=== PATIENT | female | born 1930 | race Caucasian/White ===

== ENCOUNTER 2017-10-07 19:10 | Inpatient (IN) ==
[2017-10-07 19:49] LABS: Basophils % 0.1 %; Eosinophils % 0.6 %; Immature Granulocytes % 0.2 % (0-4); Mean Corpuscular HGB Conc 31.1 g/dL (31.6-35.5); Mean Corpuscular Hemoglobin 25.8 pg (28.0-33.3); Mean Corpuscular Volume 82.8 fL (83.0-100.0); Red Blood Count 1.63 M/mcL (3.82-4.97)
[2017-10-07 19:55] LABS: Eosinophils # 0.1 K/mcL (0.0-0.6); Lymphocytes # 2.5 K/mcL (0.6-4.6); Lymphocytes % 25.8 %; Mean Platelet Volume 9.3 fL (9.4-12.4); Monocytes # 0.7 K/mcL (0.0-1.3); Monocytes % 7.1 %; Neutrophils # 6.4 K/mcL (1.6-8.9); Platelet Count 479 K/mcL (140-400); Red Cell Distribution Width 13.9 % (11.5-14.5); Segmented Neutrophils % 66.2 %
[2017-10-07 20:01] LABS: Hemoglobin 4.2 g/dL (11.5-15.4)
[2017-10-07 20:02] LABS: Hematocrit 13.5 % (35.3-44.9)
[2017-10-07 20:04] LABS: BUN/Creatinine Ratio 15 (6-26); Blood Urea Nitrogen 28 mg/dL (8-23); Calcium 9.4 mg/dL (8.6-10.3); Carbon Dioxide 18 mEq/L (23-29); Chloride 103 mEq/L (98-107); Glucose 145 mg/dL (70-105); Osmolality,Calculated 282 (280-300); Potassium 4.6 mEq/L (3.5-5.1); Sodium 132 mEq/L (136-145); Troponin I < 0.03 ng/mL (< 0.04); eGFR For African Americans 31 (> 60); eGFR For Non-African Americans 25 (> 60)
[2017-10-07 20:15] LABS: Bilirubin,Urine Large (Negative); Blood,Urine Large (Negative); Clarity,Urine Cloudy (Clear); Color,Urine Red (Yellow); Glucose,Urine (UA) Normal (Normal); Ketones,Urine 15 mg/dL (Negative); Leukocyte Esterase,Urine Moderate (Negative); Nitrite,Urine Positive (Negative); Protein,Urine 100 mg/dL (Neg-Trace); Specific Gravity,Urine 1.026 (1.010-1.025); Urobilinogen,Urine Normal (Normal)
[2017-10-07 20:29] LABS: Hypochromasia Present (Not Present); Large Platelets Present (Not Present); Microcytosis Present (Not Present); Platelet Estimate Increased (Normal); Poikilocytosis 1+ (Not Present); Target Cells 1+ (Not Present)
[2017-10-07] MEDS ORDERED: 0.9 % Sodium Chloride 500 ML IV.SOLN IVC ONE (20:29)
[2017-10-07 20:35] LABS: INR 1.1; Prothrombin Time 11.8 Seconds (9.4-12.1)
[2017-10-07 20:38] LABS: Activated Partial Thrombo Time 25.3 Seconds (26.0-36.0)
--- NOTE | 2017-10-07 21:16 | Emergency Department Note ---
Disposition Clinical Impression: Dyspnea on exertion Anemia Qualifiers: Anemia type: unspecified type Qualified Code(s): D64.9 - Anemia, unspecified Disposition: Admitted As Inpatient Condition: Fair Time of Disposition: 21:45 General Adult HPI - General Chief complaint: ED General Medical Stated complaint: Needs blood Time Seen by Provider: 10/07/17 19:12 Source: patient, family Limitations: no limitations Nursing Notes Reviewed: Yes Vital Signs Reviewed: Yes - History of Present Illness HPI Narrative: 86-year-old female with significant past medical history of stroke and previous CABG currently on Plavix presenting to the emergency department with chief complaint of anemia and shortness of breath. Patient has a known renal tumor currently being seen by urology. Today she had preoperative lab work completed in shown to have a hemoglobin of 4.7. She was told to come to the emergency department urgently. Patient states the past couple days she has had dyspnea on exertion but denies chest pain, dizziness or passing out. She denies any rectal bleeding or gingival bleeding. Daughter at bedside confirms this. She states following her bleeding is coming from her urine due to the kidney tumor. Patient states she has mild suprapubic pain but that this is chronic due to the tumor. She denies any other pains or complaints at this time. Pain Scale: 2 - Related Data Home Medications Medication Instructions Recorded Confirmed Atorvastatin [Lipitor] 40 mg PO HS 01/29/16 10/07/17 Metoprolol XL (24 HR) Succ [Toprol 50 mg PO QAM 01/29/16 10/07/17 Xl] Amlodipine Besylate [Amlodipine 10 mg PO QAM 10/07/17 10/07/17 Besylate] Aspirin Enteric Coated [Aspirin EC] 81 mg PO QAM 10/07/17 10/07/17 Cholecalciferol (Vitamin D3) 10,000 unit PO FR 10/07/17 10/07/17 [Vitamin D3] Clopidogrel Bisulfate [Plavix] 75 mg PO QAM 10/07/17 10/07/17 Valsartan [Valsartan] 320 mg PO QAM 10/07/17 10/07/17 Allergies Allergy/AdvReac Type Severity Reaction Status Date / Time nifedipine [From Procardia] Allergy Hives Verified 10/07/17 19:29 IVP dye Allergy Vomiting Uncoded 10/07/17 19:29 All systems ED: reviewed and negative except as stated. Cardiovascular: Reports: dyspnea on exertion Genitourinary: Reports: hematuria Past Medical History - Past Medical History Attestation: Yes The following information was validated with the patient. Medical history: Reports: CVA, hyperlipidemia, hypertension, myocardial infarction, other Surgical history: Reports: cataract, heart valve replacement Psychiatric history: Reports: no psych history - Social History Smoking Status: Never smoker Smokeless Tobacco Status: No Alcohol use: Reports: none Drug use: Reports: none Physical Exam - General Limitations: no limitations General appearance: alert, in no apparent distress - Head Head exam: atraumatic, normocephalic, normal inspection - Eye Eye exam: Present: normal appearance. Absent: scleral icterus, conjunctival injection - ENT ENT exam: normal exam, mucous membranes dry - Neck Neck exam: Present: normal inspection, full ROM. Absent: tenderness, meningismus - Chest Chest inspection: Present: normal inspection, symmetric chest wall rise. Absent : tenderness, rash - Respiratory Respiratory exam: Present: normal lung sounds bilaterally. Absent: respiratory distress, wheezes - Cardiovascular Cardiovascular exam: Present: regular rate, normal rhythm, normal heart sounds - Abdominal Exam Abdominal exam: Present: soft, tenderness. Absent: distention, guarding, rebound, rigidity Abdominal tenderness: Present: suprapubic, mild - Rectal Exam Rectal exam: Present: normal inspection, normal rectal tone, heme (-) stool - Extremities Exam Extremities exam: Present: normal inspection. Absent: tenderness - Neurological Exam Neurological exam: Present: alert, oriented X3 - Psychiatric Psychiatric exam: Present: normal affect, normal mood - Skin Skin exam: Present: warm, intact Course Course Narrative: 86-year-old female presenting to the emergency department with chief complaint of dyspnea on exertion and low hemoglobin. Patient stable upon arrival. She is alert and oriented 3 and room with stable vital signs. Blood obtained CBC, type and screen, BMP along with urinalysis. We will also perform an EKG and chest x-ray. Disposition will be admission. Patient and daughter at bedside agree with this plan. - Reevaluation(s) Reevaluation #1: Patient's hemoglobin 4.2. Place an order for 2 units of packed red blood cells. I spoke with the hospitalist on-call Dr. Moscoso who agrees to accept the patient at this time. Bedside stool occult was completed and was negative for blood. Patient is a alert and oriented 3 and stable vital signs at this time. Vital Signs Temperature 98.0 F 10/07/17 19:29 Pulse Rate 90 10/07/17 19:29 Respiratory Rate 16 10/07/17 19:29 Blood Pressure 126/66 10/07/17 19:29 O2 Sat by Pulse Oximetry 98 10/07/17 19:29 Temperature 98.3 F 10/07/17 21:00 Pulse Rate 81 10/07/17 21:00 Respiratory Rate 16 10/07/17 21:00 Blood Pressure 121/56 10/07/17 21:00 O2 Sat by Pulse Oximetry 100 10/07/17 21:00 Oxygen Delivery Oxygen Delivery Room Air Medical Decision Making - Lab Data Result diagrams: 10/07/17 19:28 10/07/17 19:28 Lab Results 10/07/17 10/07/17 10/07/17 Range/Units 19:28 19:28 19:28 WBC 9.7 (4.3-11.1) K/mcL RBC 1.63 L (3.82-4.97) M/mcL Hgb 4.2 L* (11.5-15.4) g/dL Hct 13.5 L* (35.3-44.9) % MCV 82.8 L (83.0-100.0) fL MCH 25.8 L (28.0-33.3) pg MCHC 31.1 L (31.6-35.5) g/dL RDW 13.9 (11.5-14.5) % Plt Count 479 H (140-400) K/mcL MPV 9.3 L (9.4-12.4) fL Immature Gran % 0.2 (0-4) % Seg Neutrophils % 66.2 % Lymphocytes % 25.8 % Monocytes % 7.1 % Eosinophils % 0.6 % Basophils % 0.1 % Neutrophils # 6.4 (1.6-8.9) K/mcL Lymphocytes # 2.5 (0.6-4.6) K/mcL Monocytes # 0.7 (0.0-1.3) K/mcL Eosinophils # 0.1 (0.0-0.6) K/mcL Basophils # 0.0 (0.0-0.2) K/mcL Platelet Estimate Increased H (Normal) Large Platelets Present A (Not Present) Hypochromasia Present A (Not Present) Poikilocytosis 1+ A (Not Present) Microcytosis Present A (Not Present) Target Cells 1+ A (Not Present) PT (9.4-12.1) Seconds INR APTT (26.0-36.0) Seconds Sodium 132 L (136-145) mEq/L Potassium 4.6 (3.5-5.1) mEq/L Chloride 103 (98-107) mEq/L Carbon Dioxide 18 L (23-29) mEq/L BUN 28 H (8-23) mg/dL Creatinine 1.89 H (0.60-1.20) mg/dL Est GFR ( Amer) 31 L (> 60) Est GFR (Non-Af Amer) 25 L (> 60) BUN/Creatinine Ratio 15 (6-26) Glucose 145 H (70-105) mg/dL Calculated Osmolality 282 (280-300) Calcium 9.4 (8.6-10.3) mg/dL Troponin I < 0.03 (< 0.04) ng/mL Ur Specimen Adequacy Urine Color (Yellow) Urine Clarity (Clear) Urine pH (5.0-8.0) pH Units Ur Specific [place] (1.010-1.025) Urine Protein (Neg-Trace) mg/dL Urine Glucose (UA) (Normal) mg/dL Urine Ketones (Negative) mg/dL Urine Blood (Negative) Urine Nitrite (Negative) Urine Bilirubin (Negative) Urine Urobilinogen (Normal) mg/dL Ur Leukocyte Esterase (Negative) Ur Culture Indicated? (NO) Specimen Rejected Blood Type AB POSITIVE Antibody Screen NEGATIVE Crossmatch See Detail 10/07/17 10/07/17 10/07/17 Range/Units 19:28 20:02 20:04 WBC (4.3-11.1) K/mcL RBC (3.82-4.97) M/mcL Hgb (11.5-15.4) g/dL Hct (35.3-44.9) % MCV (83.0-100.0) fL MCH (28.0-33.3) pg MCHC (31.6-35.5) g/dL RDW (11.5-14.5) % Plt Count (140-400) K/mcL MPV (9.4-12.4) fL Immature Gran % (0-4) % Seg Neutrophils % % Lymphocytes % % Monocytes % % Eosinophils % % Basophils % % Neutrophils # (1.6-8.9) K/mcL Lymphocytes # (0.6-4.6) K/mcL Monocytes # (0.0-1.3) K/mcL Eosinophils # (0.0-0.6) K/mcL Basophils # (0.0-0.2) K/mcL Platelet Estimate (Normal) Large Platelets (Not Present) Hypochromasia (Not Present) Poikilocytosis (Not Present) Microcytosis (Not Present) Target Cells (Not Present) PT 11.8 (9.4-12.1) Seconds INR 1.1 APTT 25.3 L (26.0-36.0) Seconds Sodium (136-145) mEq/L Potassium (3.5-5.1) mEq/L Chloride (98-107) mEq/L Carbon Dioxide (23-29) mEq/L BUN (8-23) mg/dL Creatinine (0.60-1.20) mg/dL Est GFR ( Amer) (> 60) Est GFR (Non-Af Amer) (> 60) BUN/Creatinine Ratio (6-26) Glucose (70-105) mg/dL Calculated Osmolality (280-300) Calcium (8.6-10.3) mg/dL Troponin I (< 0.04) ng/mL Ur Specimen Adequacy See below A Urine Color Red A (Yellow) Urine Clarity Cloudy A (Clear) Urine pH 5.0 (5.0-8.0) pH Units Ur Specific [place] 1.026 H (1.010-1.025) Urine Protein 100 H (Neg-Trace) mg/dL Urine Glucose (UA) Normal (Normal) mg/dL Urine Ketones 15 H (Negative) mg/dL Urine Blood Large H (Negative) Urine Nitrite Positive A (Negative) Urine Bilirubin Large H (Negative) Urine Urobilinogen Normal (Normal) mg/dL Ur Leukocyte Esterase Moderate H (Negative) Ur Culture Indicated? YES A (NO) Specimen Rejected Volume Blood Type Antibody Screen Crossmatch - EKG Data EKG #1 EKG attestation: Yes I reviewed and interpreted this EKG. EKG results narrative: Sinus rhythm. Nonspecific T wave abnormality. 81 bpm. WA interval 162, QRS 99 , QTc 398. No signs of acute ST segment elevation or ischemia noted.
--- NOTE | 2017-10-07 21:20 | Emergency Department Note ---
START Narrative - START START: I, Rylan Dooley, examined this patient and my medical decision-making was reviewed with the FOOD STAND MANAGER/PA/Advanced Practice Nurse/Resident Physician. I agree with the documented findings, disposition and treatment plan as described except to the extent set forth below. 86-year-old female presents to the emergency department with concerns of decreased hemoglobin, increasing weakness, fatigue and shortness of breath on exertion. Patient has been having gross hematuria for the past 3 months and has been diagnosed with bladder cancer and is scheduled for resection of the bladder within the next 2 weeks. Patient hemoglobin 4.2 on recheck today. Patient denies hematochezia or melena or hematemesis or coffee-ground emesis. 2 units of blood ordered in the emergency department. She will be admitted to the hospitalist for further care and evaluation with transfusion and likely evaluation by urology.
--- NOTE | 2017-10-07 21:35 | Internal Med History&Physical ---
Date of Encounter: 10/07/17 Time of Encounter: 21:20 Assessment and Plan (1) Acute blood loss anemia Current visit: Yes Status: Acute Severe acute blood loss anemia due to chronic hematuria related to bladder cancer. Hemoglobin 4.2. Patient receiving blood transfusion. 2 units of packed red blood cells ordered. Will recheck hemoglobin levels and transfuse as needed. High risk for complications. (2) Bladder cancer Current visit: Yes Status: Acute History of bladder cancer. Suspected cause of hematuria. We will consult urology for evaluation and recommendations. Qualifiers: Bladder location: unspecified site Qualified Code(s): C67.9 - Malignant neoplasm of bladder, unspecified (3) Coronary artery disease Current visit: Yes Status: Chronic Continue home medications but will hold Plavix for now due to severe blood loss anemia and hematuria. Patient is taking aspirin and Plavix due to prior stroke. Qualifiers: Coronary Disease-Associated Artery/Lesion type: jena artery [place] vs. transplanted heart: jena heart Associated angina: without angina Qualified Code(s): I25.10 - Atherosclerotic heart disease of [place] coronary artery without angina pectoris (4) DVT prophylaxis Current visit: No Status: Acute With SCDs (5) Hematuria Current visit: Yes Status: Acute Due to bladder cancer. Consult urology. Qualifiers: Hematuria type: gross Qualified Code(s): R31.0 - Gross hematuria (6) HTN (hypertension) Current visit: Yes Status: Chronic Continue home medications. Monitor blood pressure closely. Qualifiers: Hypertension type: essential hypertension Qualified Code(s): I10 - Essential (primary) hypertension Internal Medicine - H&P: HPI Chief complaint: Generalized weakness, dyspnea on exertion Admitted From: Emergency Dept Plans for Post Hospital Care: Home History of present illness: Ms. Garcia is a 86 year old female patient with history of coronary artery disease, status posts CABG, CVA bovine valve replacement, recently diagnosed bladder cancer presented to the ER with complaints of generalized weakness and shortness of breath on exertion. She had her blood work checked as outpatient and was found to have severe anemia. She was therefore advised to come to the ER. She denies any chest pain or palpitations. She has been having hematuria over the past 3 months and it has been intermittently worsening. She denies any dysuria. She was scheduled to undergo a procedure later this month for her bladder cancer per urology recommendations. She denies any fever or chills or night sweats. No nausea vomiting or diarrhea. Patient has been on Plavix and aspirin since a stroke she had in 2016. Past Med Surg Social Fam HX - Past Medical History Attestation: Yes The following information was validated with the patient. Source: patient Medical history: CVA, hyperlipidemia, hypertension, myocardial infarction, other Psychiatric history: no psych history - Past Surgical History Surgical History: cataract, heart valve replacement - Social History Smoking Status: Never smoker Smokeless Tobacco Status: No Alcohol use: none Drug use: none - Family History Mother Living Status: Hx Family Cardiac Disorders: No Hx Family Respiratory Disorders: No Hx Family Cancer: No Hx Family GI Disorders: Yes (GERD) Hx Family Endocrine Disorder: Yes (DM) Hx Family Neuromuscular Disorders: No Hx Family Neurologic Disorders: No Hx Family HEENT Disorders: No Hx Family Autoimmune Disorders: No Father Living Status: Hx Family Cardiac Disorders: Yes (HTN, [place]) Hx Family Respiratory Disorders: Yes (Black lung) Hx Family Cancer: No Hx Family GI Disorders: No Hx Family Endocrine Disorder: No Hx Family Neuromuscular Disorders: No Hx Family Neurologic Disorders: No Hx Family HEENT Disorders: No Hx Family Autoimmune Disorders: No Internal Medicine - H&P: Meds Atorvastatin [Lipitor] 40 mg PO HS 01/29/16 [History] Metoprolol XL (24 HR) Succ [Toprol Xl] 50 mg PO QAM 01/29/16 [History] Amlodipine Besylate [Amlodipine Besylate] 10 mg PO QAM 10/07/17 [History] Aspirin Enteric Coated [Aspirin EC] 81 mg PO QAM 10/07/17 [History] Cholecalciferol (Vitamin D3) [Vitamin D3] 10,000 unit PO FR 10/07/17 [History] Clopidogrel Bisulfate [Plavix] 75 mg PO QAM 10/07/17 [History] Valsartan [Valsartan] 320 mg PO QAM 10/07/17 [History] 3 Allergy/AdvReac Type Severity Reaction Status Date / Time nifedipine [From Procardia] Allergy Hives Verified 10/07/17 19:29 IVP dye Allergy Vomiting Uncoded 10/07/17 19:29 All Systems PM: A 10-system review of systems was performed and is negative for pertinent findings except as documented above in the HPI. - Constitutional Constitutional: fatigue, malaise, weakness, no chills, no fever(s), no night sweats - EENT Eyes: no change in vision, no discharge, no pain, no photophobia Ears: no ear discharge, no ear pain, no tinnitus Nose, mouth and throat: no dysphagia, no nasal discharge, no neck pain, no sore throat - Cardiovascular Cardiovascular ROS IM: dyspnea, dyspnea on exertion - Respiratory Respiratory: no cough, no dyspnea, no wheezing, no excessive phlegm production - Gastrointestinal Gastrointestinal: no abdominal pain, no diarrhea, no hematemesis, no hematochezia, no melena, no nausea, no vomiting - Genitourinary Genitourinary: hematuria, no change in urinary stream, no dysuria, no flank pain - Musculoskeletal Musculoskeletal ROS IM: no numbness, no tingling - Integumentary Integumentary IM: no rash, no unusual bruising - Neurological Neurological ROS: no confusion, no convulsions, no focal weakness, no numbness, no tingling, no tremor(s) - Hematologic/Lymphatic Hematologic/Lymphatic: no easy bruising - Constitutional Vitals: Temp Pulse Resp BP Pulse Ox 98.3 F 81 16 121/56 100 10/07/17 21:00 10/07/17 21:00 10/07/17 21:00 10/07/17 21:00 10/07/17 21:00 General appearance: Present: cooperative, mild distress, A&O X 3, pleasant, answers questions appropriately - Eye Eye exam: Present: EOMI, PERRL, conjuntiva pink, sclera anicteric - Neck Neck exam general surgery: Present: supple, trachea midline. Absent: lymphadenopathy - Respiratory Respiratory exam: Present: CTAB. Absent: accessory muscle use, rales, rhonchi, wheezes - Cardiovascular Cardiovascular exam: Present: RRR, +S1, +S2. Absent: diastolic murmur, gallop, rubs, systolic murmur - GI/Abdominal GI/Abdominal exam: Present: normal bowel sounds, soft, no peritoneal signs. Absent: distended, tenderness - Extremities Exam Extremities exam: Present: warm, radial pulses palpable and symmetrical. Absent : calf tenderness, cyanotic, pedal edema - Neurological Exam Neurological exam: Present: alert, oriented X3, no focal deficits. Absent: pronater drift, facial droop, speech deficit - Skin Skin exam: Present: dry, intact, pallor Internal Med - H&P Results - Labs CBC & Chem 7: 10/07/17 19:28 10/07/17 19:28 - Impressions Impressions Chest X-Ray 10/07/17 19:24 IMPRESSION: No acute process. D/ / 10/07/2017 19:43:36 Joey Thomas MD / elise Interpreting Provider: Joey Thomas MD
[2017-10-07] MEDS ORDERED: Naloxone 0.4 MG/ML INJ IVP PRN (21:39)
[2017-10-07] MEDS ORDERED: Ringers Solution, Lactated 1,000 ML IVC SCH (21:45)
[2017-10-08 04:44] LABS: Basophils % 0.4 %; Eosinophils # 0.3 K/mcL (0.0-0.6); Eosinophils % 2.6 %; Hematocrit 21.1 % (35.3-44.9); Immature Granulocytes % 0.6 % (0-4); Lymphocytes # 1.7 K/mcL (0.6-4.6); Lymphocytes % 17.2 %; Mean Corpuscular HGB Conc 33.2 g/dL (31.6-35.5); Mean Corpuscular Hemoglobin 27.7 pg (28.0-33.3); Mean Corpuscular Volume 83.4 fL (83.0-100.0); Neutrophils # 6.7 K/mcL (1.6-8.9); Platelet Count 339 K/mcL (140-400); Red Blood Count 2.53 M/mcL (3.82-4.97); Red Cell Distribution Width 14.4 % (11.5-14.5); Segmented Neutrophils % 69.2 %
[2017-10-08 05:03] LABS: Potassium 4.3 mEq/L (3.5-5.1)
--- NOTE | 2017-10-08 07:31 | Urology - Consult Note ---
Date of Encounter: 10/08/17 Time of Encounter: 07:28 - Assessment and Plan (1) Acute blood loss anemia Current Visit: Yes Status: Acute Assessment and plan: Appreciate internal medicine support. She was given a transfusion yesterday. We will follow her blood counts. (2) Bladder cancer Current Visit: Yes Status: Acute Assessment and plan: Plavix has been held. We will see how her urine looks today. If it becomes more clear, we may be able to continue with her planned or date. If she has persistent hematuria, we may need to proceed with the TURBT on a more urgent standpoint. For now, we will see how she does with resuscitation and I will follow closely her urine color. Qualifiers: Bladder location: unspecified site Qualified Code(s): C67.9 - Malignant neoplasm of bladder, unspecified (3) Hematuria Current Visit: Yes Status: Acute Assessment and plan: We will follow serial urines. Qualifiers: Hematuria type: gross Qualified Code(s): R31.0 - Gross hematuria Urology CN:HPI Consult date: 10/08/17 Reason for consult Urology: Gross Hematuria History of present illness: 86-year-old woman with a history of a bladder tumor presents with severe anemia. She was having routine labs drawn yesterday and a hemoglobin of 4.1 was noted. I called the patient and she was brought to the emergency room. She has been admitted for anemia and was given a transfusion. She is still having intermittent hematuria. They stopped her Plavix today. She is scheduled for a transurethral resection of bladder tumor later this month. Past Med Surg Social Fam HX - Past Medical History Medical history: CVA, hyperlipidemia, hypertension, myocardial infarction, other Psychiatric history: no psych history - Past Surgical History Surgical History: cataract, heart valve replacement - Social History Smoking Status: Never smoker Smokeless Tobacco Status: No Alcohol use: none Drug use: none - Family History Mother Living Status: Hx Family Cardiac Disorders: No Hx Family Respiratory Disorders: No Hx Family Cancer: No Hx Family GI Disorders: Yes (GERD) Hx Family Endocrine Disorder: Yes (DM) Hx Family Neuromuscular Disorders: No Hx Family Neurologic Disorders: No Hx Family HEENT Disorders: No Hx Family Autoimmune Disorders: No Father Living Status: Hx Family Cardiac Disorders: Yes (HTN, [place]) Hx Family Respiratory Disorders: Yes (Black lung) Hx Family Cancer: No Hx Family GI Disorders: No Hx Family Endocrine Disorder: No Hx Family Neuromuscular Disorders: No Hx Family Neurologic Disorders: No Hx Family HEENT Disorders: No Hx Family Autoimmune Disorders: No Medications and Allergies Atorvastatin [Lipitor] 40 mg PO HS 01/29/16 [History] Metoprolol XL (24 HR) Succ [Toprol Xl] 50 mg PO QAM 01/29/16 [History] Amlodipine Besylate [Amlodipine Besylate] 10 mg PO QAM 10/07/17 [History] Aspirin Enteric Coated [Aspirin EC] 81 mg PO QAM 10/07/17 [History] Cholecalciferol (Vitamin D3) [Vitamin D3] 10,000 unit PO FR 10/07/17 [History] Clopidogrel Bisulfate [Plavix] 75 mg PO QAM 10/07/17 [History] Valsartan [Valsartan] 320 mg PO QAM 10/07/17 [History] 3 Allergy/AdvReac Type Severity Reaction Status Date / Time nifedipine [From Procardia] Allergy Hives Verified 10/07/17 19:29 IVP dye Allergy Vomiting Uncoded 10/07/17 19:29 Review of Systems - Constitutional no chills, no fever(s) - EENT Nose, mouth and throat: no dizziness - Cardiovascular no chest pain - Respiratory no dyspnea - Gastrointestinal no nausea, no vomiting - Genitourinary Genitourinary: hematuria, no flank pain - Musculoskeletal no back pain - Integumentary no erythema, no rash - Neurological no weakness - Psychiatric no suicidal ideation - Hematologic/Lymphatic no easy bleeding - Allergic/Immunologic no wheezing Exam Initial Vital Signs Temp Pulse Resp BP Pulse Ox 98.0 F 90 16 126/66 98 10/07/17 19:29 10/07/17 19:29 10/07/17 19:29 10/07/17 19:29 10/07/17 19:29 - General physical appearance Present: well developed, well nourished, no distress - Eyes Absent: icteric - ENT Present: normal nares - Neck Present: trachea midline - Respiratory Present: normal respiratory effort - Cardiovascular Cardiovascular exam IM: RRR - Abdomen Abdomen: Present: soft - Neurologic Present: normal coordination Urology Results - Labs 10/08/17 04:16 10/08/17 04:16 Abnormal lab results RBC 2.53 M/mcL (3.82-4.97) L 10/08/17 04:16 Hgb 7.0 g/dL (11.5-15.4) L D 10/08/17 04:16 Hct 21.1 % (35.3-44.9) L 10/08/17 04:16 MCH 27.7 pg (28.0-33.3) L 10/08/17 04:16 MPV 9.0 fL (9.4-12.4) L 10/08/17 04:16 Platelet Estimate Increased (Normal) H 10/07/17 19:28 Large Platelets Present (Not Present) A 10/07/17 19:28 Hypochromasia Present (Not Present) A 10/07/17 19:28 Poikilocytosis 1+ (Not Present) A 10/07/17 19:28 Microcytosis Present (Not Present) A 10/07/17 19:28 Target Cells 1+ (Not Present) A 10/07/17 19:28 APTT 25.3 Seconds (26.0-36.0) L 10/07/17 20:04 Sodium 132 mEq/L (136-145) L 10/08/17 04:16 Carbon Dioxide 22 mEq/L (23-29) L 10/08/17 04:16 BUN 25 mg/dL (8-23) H 10/08/17 04:16 Creatinine 1.64 mg/dL (0.60-1.20) H 10/08/17 04:16 Est GFR ( Amer) 36 (> 60) L 10/08/17 04:16 Est GFR (Non-Af Amer) 30 (> 60) L 10/08/17 04:16 POC Glucose 117 (58-89) H 10/07/17 22:23 Calculated Osmolality 278 (280-300) L 10/08/17 04:16 Ur Specimen Adequacy See below A 10/07/17 20:02 Urine Color Red (Yellow) A 10/07/17 20:02 Urine Clarity Cloudy (Clear) A 10/07/17 20:02 Ur Specific [place] 1.026 (1.010-1.025) H 10/07/17 20:02 Urine Protein 100 mg/dL (Neg-Trace) H 10/07/17 20:02 Urine Ketones 15 mg/dL (Negative) H 10/07/17 20:02 Urine Blood Large (Negative) H 10/07/17 20:02 Urine Nitrite Positive (Negative) A 10/07/17 20:02 Urine Bilirubin Large (Negative) H 10/07/17 20:02 Ur Leukocyte Esterase Moderate (Negative) H 10/07/17 20:02 Ur Culture Indicated? YES (NO) A 10/07/17 20:02 Diabetes panel 10/08/17 Range/Units 04:16 Sodium 132 L (136-145) mEq/L Potassium 4.3 (3.5-5.1) mEq/L Chloride 106 (98-107) mEq/L Carbon Dioxide 22 L (23-29) mEq/L BUN 25 H (8-23) mg/dL Creatinine 1.64 H (0.60-1.20) mg/dL Glucose 90 (70-105) mg/dL Calcium 9.0 (8.6-10.3) mg/dL Calcium panel 10/08/17 Range/Units 04:16 Calcium 9.0 (8.6-10.3) mg/dL Pituitary panel 10/08/17 Range/Units 04:16 Sodium 132 L (136-145) mEq/L Potassium 4.3 (3.5-5.1) mEq/L Chloride 106 (98-107) mEq/L Carbon Dioxide 22 L (23-29) mEq/L BUN 25 H (8-23) mg/dL Creatinine 1.64 H (0.60-1.20) mg/dL Glucose 90 (70-105) mg/dL Calcium 9.0 (8.6-10.3) mg/dL Adrenal panel 10/08/17 Range/Units 04:16 Sodium 132 L (136-145) mEq/L Potassium 4.3 (3.5-5.1) mEq/L Chloride 106 (98-107) mEq/L Carbon Dioxide 22 L (23-29) mEq/L BUN 25 H (8-23) mg/dL Creatinine 1.64 H (0.60-1.20) mg/dL Glucose 90 (70-105) mg/dL Calcium 9.0 (8.6-10.3) mg/dL All other labs normal. Consult Discharge Plan - Plan Referrals: Dong Lewis DO [Primary Care Provider] -
[2017-10-08] MEDS: amLODIPine 5 MG TABLET PO SCH (09:16)
[2017-10-08] MEDS: Metoprolol XL (24 HR) Succ 50 MG TAB.ER.24H PO SCH (09:16)
--- NOTE | 2017-10-08 10:15 | Internal Med Progress Note ---
<Brody Calderon - Last Filed: 10/08/17 16:50> Date of Encounter: 10/08/17 Time of Encounter: 16:50 - Assessment and plan (1) Acute blood loss anemia Current Visit: Yes Status: Acute Assessment and plan: Hx of bladder cancer suspected cause of hematuria Urology if following, monitoring urine for blood, monitor hgb Holding plavix Most recent hemoglobin was 6.7 Plan: - Continue to monitor, presently has hematuria - Repeat hemoglobin was 6.7 patient will receive 1 unit of PRBC - Urology following (2) Bladder cancer Current Visit: Yes Status: Acute Assessment and plan: Followed by urology. See note above Qualifiers: Bladder location: unspecified site Qualified Code(s): C67.9 - Malignant neoplasm of bladder, unspecified (3) CONNIE (acute kidney injury) Current Visit: Yes Status: Acute Assessment and plan: Cr 1.89 to 1.65 Unsure if chronic or due to acute blood loss Cr in February 2016 was 1.01 Plan: - Continue to monitor - Received 1L LR yesterday, consider additional liter today per urology (4) Coronary artery disease Current Visit: Yes Status: Chronic Assessment and plan: Holding plavix, valsartan Qualifiers: Coronary Disease-Associated Artery/Lesion type: [place] artery [place] vs. 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 Patient has a known renal tumor was being seen by urology when it was discovered by pre-operative lab work and her hemoglobin was 4.7. According to patients daughter at bedside patient had blood coming from her urine which is secondary to her kidney tumor. She denied any other sources of bleeding. Hemoglobin in the emergency department was 4.2. The patient has been having hematuria over the past 3 months but has been intermittently worsening. Patient is scheduled to undergo a procedure later this month for bladder cancer per urology recommendations. Urology is following the patients blood counts. Plavix has been held. Patient continues to have hematuria throughout the day, will wait for urology consultation. If hematuria is persistent they will proceed with transurethral resection of bladder tumor on more emergent standpoint. - Constitutional Vitals: Temp Pulse Resp BP Pulse Ox 99.1 F 81 18 128/63 98 10/08/17 07:32 10/08/17 07:32 10/08/17 07:32 10/08/17 07:32 10/08/17 07:32 General appearance: Present: cooperative, mild distress, A&O X 3, pleasant, answers questions appropriately Exam: Patient is sitting in bed and is in no acute distress she is very pleasant states that she is feeling better today and more energetic. 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 Absent: respiratory distress, tachypnea - Cardiovascular Cardiovascular exam: Present: RRR, +S1, +S2 - GI/Abdominal GI/Abdominal exam: Present: normal bowel sounds, soft, no peritoneal signs - Extremities Exam Extremities exam: Present: pedal edema (Mild bilaterally), warm. Absent: tenderness - Back Exam Back exam: Present: normal inspection. Absent: tenderness - Neurological Exam Neurological exam: Present: alert, oriented X3, no focal deficits - Psychiatric Psychiatric exam: Present: normal affect, normal mood - Skin Skin exam: Present: intact, warm Internal Medicine: Result - Labs CBC & Chem 7: 10/08/17 12:18 10/08/17 04:16 Labs: Short CBC 10/08/17 Range/Units 04:16 WBC 9.7 (4.3-11.1) K/mcL Hgb 7.0 L D (11.5-15.4) g/dL Hct 21.1 L (35.3-44.9) % Plt Count 339 (140-400) K/mcL Neutrophils # 6.7 (1.6-8.9) K/mcL BMP 10/08/17 04:16 Sodium 132 L Potassium 4.3 Chloride 106 Carbon Dioxide 22 L BUN 25 H Creatinine 1.64 H Glucose 90 Calcium 9.0 - ABG Interpretation ABG results: PT/INR, D-dimer PT 11.8 Seconds (9.4-12.1) 10/07/17 20:04 Consult Discharge Plan - Plan Referrals: Oc Baker MD [Partnered Physician] - (Office will call patient at home with follow up appointment) Dong Lewis DO [Primary Care Provider] - 10/16/17 10:15 am () <Lew Spears - Last Filed: 10/08/17 18:46> Date of Encounter: 10/08/17 - Constitutional Vitals: Temp Pulse Resp BP Pulse Ox 99 F 74 18 116/59 98 10/08/17 18:38 10/08/17 16:51 10/08/17 18:38 10/08/17 18:38 10/08/17 16:51 Internal Medicine: Result - Labs CBC & Chem 7: 10/08/17 17:47 10/08/17 04:16 Labs: Short CBC 10/08/17 10/08/17 10/08/17 Range/Units 04:16 12:18 17:47 WBC 9.7 (4.3-11.1) K/mcL Hgb 7.0 L D 6.7 L 6.5 L (11.5-15.4) g/dL Hct 21.1 L 20.2 L 19.6 L (35.3-44.9) % Plt Count 339 (140-400) K/mcL Neutrophils # 6.7 (1.6-8.9) K/mcL BMP 10/08/17 04:16 Sodium 132 L Potassium 4.3 Chloride 106 Carbon Dioxide 22 L BUN 25 H Creatinine 1.64 H Glucose 90 Calcium 9.0 - ABG Interpretation ABG results: PT/INR, D-dimer PT 11.8 Seconds (9.4-12.1) 10/07/17 20:04 - Attending Attestation I examined this patient and my medical decision-making was reviewed with the Resident Physician. I agree with the documented findings, disposition and treatment plan as described except to the extent set forth below.
[2017-10-08 12:57] LABS: Hematocrit 20.2 % (35.3-44.9); Hemoglobin 6.7 g/dL (11.5-15.4)
[2017-10-08 17:57] LABS: Hematocrit 19.6 % (35.3-44.9); Hemoglobin 6.5 g/dL (11.5-15.4)
[2017-10-09 00:36] LABS: Hematocrit 23.5 % (35.3-44.9); Hemoglobin 7.8 g/dL (11.5-15.4)
[2017-10-09 00:55] LABS: Calcium 8.7 mg/dL (8.6-10.3); Potassium 4.3 mEq/L (3.5-5.1)
[2017-10-09 06:01] LABS: Hemoglobin 8.2 g/dL (11.5-15.4)
--- NOTE | 2017-10-09 07:20 | Urology Progress Note ---
Date of Encounter: 10/09/17 Time of Encounter: 07:18 - Assessment and Plan (1) Acute blood loss anemia Current Visit: Yes Status: Acute Assessment and plan: Improved after transfusion. (2) Bladder cancer Current Visit: Yes Status: Acute Assessment and plan: No urgent need for surgical therapy at this time. She can proceed with elective TURBT. Qualifiers: Bladder location: unspecified site Qualified Code(s): C67.9 - Malignant neoplasm of bladder, unspecified (3) Hematuria Current Visit: Yes Status: Acute Assessment and plan: Hematuria has resolved. If possible please hold Plavix through surgery date. Urology will sign off today. Please call if there are any questions. Qualifiers: Hematuria type: gross Qualified Code(s): R31.0 - Gross hematuria Progress Note Narrative: Doing well this morning. Her urine has cleared. Hemoglobin has risen to 8.2 after 3 units of blood. Objective Initial Vital Signs Temp Pulse Resp BP Pulse Ox 98.0 F 90 16 126/66 98 10/07/17 19:29 10/07/17 19:29 10/07/17 19:29 10/07/17 19:29 10/07/17 19:29 - General physical appearance Present: well developed, well nourished, no distress - Respiratory Present: normal expansion - Abdomen Present: soft - Genitourinary Urine Appearance: Present: Clear - Labs 10/09/17 05:39 10/09/17 00:23 Diabetes panel 10/09/17 Range/Units 00:23 Sodium 131 L (136-145) mEq/L Potassium 4.3 (3.5-5.1) mEq/L Chloride 102 (98-107) mEq/L Carbon Dioxide 23 (23-29) mEq/L BUN 20 (8-23) mg/dL Creatinine 1.55 H (0.60-1.20) mg/dL Glucose 92 (70-105) mg/dL Calcium 8.7 (8.6-10.3) mg/dL Calcium panel 10/09/17 Range/Units 00:23 Calcium 8.7 (8.6-10.3) mg/dL Pituitary panel 10/09/17 Range/Units 00:23 Sodium 131 L (136-145) mEq/L Potassium 4.3 (3.5-5.1) mEq/L Chloride 102 (98-107) mEq/L Carbon Dioxide 23 (23-29) mEq/L BUN 20 (8-23) mg/dL Creatinine 1.55 H (0.60-1.20) mg/dL Glucose 92 (70-105) mg/dL Calcium 8.7 (8.6-10.3) mg/dL Adrenal panel 10/09/17 Range/Units 00:23 Sodium 131 L (136-145) mEq/L Potassium 4.3 (3.5-5.1) mEq/L Chloride 102 (98-107) mEq/L Carbon Dioxide 23 (23-29) mEq/L BUN 20 (8-23) mg/dL Creatinine 1.55 H (0.60-1.20) mg/dL Glucose 92 (70-105) mg/dL Calcium 8.7 (8.6-10.3) mg/dL - VTE Documentation of Mechanical Device: Intermittent pneumatic compression device Consult Discharge Plan - Plan Referrals: Oc Baker MD [Partnered Physician] - (Office will call patient at home with follow up appointment) Dong Lewis DO [Primary Care Provider] - 10/16/17 10:15 am ()
[2017-10-09] MEDS: amLODIPine 5 MG TABLET PO SCH (08:07)
[2017-10-09] MEDS: Metoprolol XL (24 HR) Succ 50 MG TAB.ER.24H PO SCH (08:07)
--- NOTE | 2017-10-09 16:19 | Electrocardiograph Report ---
[place] [id number] Test Date: 2017-10-07 Pat Name: Kelsea Garcia Department: 104 Room: 2N15 Gender: F [employer]: KINGA : 1930 Requested By: Isabella Mcintyre Order Number: [id number] Reading MD: Mitch Patton DO Measurements Intervals [place] Rate: 81 P: 39 AL: 162 QRS: 7 QRSD: 99 T: 59 QT: 361 QTc: 398 Interpretive Statements SINUS RHYTHM NONSPECIFIC T-WAVE ABNORMALITY Electronically Signed On 10-09-2017 16:17:46 EST by Mitch Patton DO
[2017-10-09 16:37] VITALS: BP 127/72
--- NOTE | 2017-10-09 17:04 | Discharge Summary ---
<Brody Calderon - Last Filed: 10/09/17 16:59> - NOTES TO OUTPATIENT PROVIDER Notes to Outpatient Provider: Patient is to no longer take Plavix or aspirin at this time. Patient has elective surgery plan for 10/20/17 for bladder cancer removal. Patient required 3 units of packed red blood cells in the hospital due to symptomatic anemia which is secondary to patient's hematuria secondary to patient's bladder cancer. Hence, stopping antiplatelets. Date of Encounter: 10/09/17 Time of Encounter: 16:59 - Discharge Diagnosis (1) Acute blood loss anemia Priority: Primary Status: Acute (2) CONNIE (acute kidney injury) Priority: Primary Status: Acute (3) Bladder cancer Priority: Secondary Status: Acute Qualifiers: Bladder location: unspecified site Qualified Code(s): C67.9 - Malignant neoplasm of bladder, unspecified (4) Coronary artery disease Priority: Secondary Status: Chronic Qualifiers: Coronary Disease-Associated Artery/Lesion type: [place] artery [place] vs. 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 Patient has a known renal tumor was being seen by urology when it was discovered by pre-operative lab work and her hemoglobin was 4.7. According to patients daughter at bedside patient had blood coming from her urine which is secondary to her kidney tumor. She denied any other sources of bleeding. Hemoglobin in the emergency department was 4.2. The patient has been having hematuria over the past 3 months but has been intermittently worsening. Patient is scheduled to undergo a procedure later this month for bladder cancer per urology recommendations. In the hospital the patient received 3 units total of packed red blood cells. Her hematuria was monitored by urology and resolved yesterday evening and since then the patient has had clear/yellow urine. The patient was also withheld from her Plavix and aspirin which she is believed to be on due to a stroke that occurred years ago. This is also believed to be the cause of the patient's bleeding. The patient has plans for elective TURBT on 10/20/17. Patient did have a KI which is secondary to acute blood loss anemia. Her creatinine has continued to trend towards normal and she has had good urinary output. Overall, the patient states that she feels well and her last hemoglobin was 8. Discharge discussed with: patient, family Time spent discussing smoking cessation with patient: 3 to 10 minutes - Time Spent with Patient Total time spent providing and/or coordinating discharge services: - Discharge Medications Prescriptions: Docusate [Colace] 100 mg PO BID PRN #10 capsule PRN Reason: Constipation Home Medications: Atorvastatin [Lipitor] 40 mg PO HS 01/29/16 [History] Metoprolol XL (24 HR) Succ [Toprol Xl] 50 mg PO QAM 01/29/16 [History] Amlodipine Besylate 10 mg PO QAM 10/07/17 [History] Cholecalciferol (Vitamin D3) [Vitamin D3] 10,000 unit PO FR 10/07/17 [History] Valsartan 320 mg PO QAM 10/07/17 [History] Docusate [Colace] 100 mg PO BID PRN #10 capsule 10/09/17 [Rx] Allergies/Adverse Reactions: 3 Allergy/AdvReac Type Severity Reaction Status Date / Time nifedipine [From Procardia] Allergy Hives Verified 10/07/17 19:29 IVP dye Allergy Vomiting Uncoded 10/07/17 19:29 Date of admission: 10/07/17 21:39 Primary care physician: Dong Lewis Consults: 10/07/17 22:00 Consult to Urology [CONS] Routine Consulting Provider: Urology Patricia Reason for Consult: hematuria/ bladder cancer Time Notified: 22:00 Call Completed: Yes Discharging clinician: Lew Spears Anticipated date of discharge: 10/09/17 - Constitutional Vitals: Temp Pulse Resp BP Pulse Ox 98.7 F 70 15 127/72 94 10/09/17 16:34 10/09/17 16:34 10/09/17 16:34 10/09/17 16:34 10/09/17 16:34 Exam: CONSTITUTIONAL: Alert and oriented X3, well-nourished, well appearing, in no apparent distress HEAD: Normocephalic; atraumatic. EYES: PERRL, no scleral icterus. NOSE: The nose is normal in appearance without rhinorrhea RESP: Normal chest excursion with respiration; breath sounds clear and equal bilaterally; no wheezes, rhonchi, or rales CARD: Regular rhythm, without murmurs, rub or gallop ABD: Non-distended; non-tender, soft,without rigidity, rebound or guarding SKIN: Normal for age and race; warm and dry; no apparent lesions - Patient Status Disposition: Home, Self-Care Condition: Good Functional capacity at discharge: independent ambulation Overall status at discharge: patient is back to baseline - Discharge Instructions Follow Up With: Dong Lewis DO [Primary Care Provider] - 10/16/17 10:15 am () Oc Baker MD [Partnered Physician] - (Office will call patient at home with follow up appointment) Forms: ED Satisfaction Letter, Work/School Release Additional Instructions: 1. You have a follow-up appointment scheduled with Dr. Lewis on 10/16/17 please attend for reevaluation. 2. Dr. Baker with cardiology will call your home phone number for a follow-up appointment. His phone number is [phone]. 3. Stop taking your Plavix and aspirin until you have had your bladder surgery and her primary care decided to this time to restart the aspirin. 4. If at any time you experience any worsening or concerning symptoms such as fever, headache, nausea, vomiting, chest pain, shortness of breath, abdominal pain, weakness, blood in her urine or any other concerning signs or symptoms return to the nearest emergency department for further evaluation and treatment. - Diet and Activity Activity: resume usual activities as tolerated Diet: advance to your usual diet - VTE Documentation of Mechanical Device: Intermittent pneumatic compression device <Lew Spears - Last Filed: 10/09/17 18:47> Date of Encounter: 10/09/17 Hospital course: Ms. Garcia is a 86 year old female - Time Spent with Patient Total time spent providing and/or coordinating discharge services: Date of admission: 10/07/17 21:39 Primary care physician: Dong Lewis Consults: 10/07/17 22:00 Consult to Urology [CONS] Routine Consulting Provider: Urology Patricia Reason for Consult: hematuria/ bladder cancer Time Notified: 22:00 Call Completed: Yes - Constitutional Vitals: Temp Pulse Resp BP Pulse Ox 98.7 F 70 15 127/72 94 10/09/17 16:34 10/09/17 16:34 10/09/17 16:34 10/09/17 16:34 10/09/17 16:34 - Attending Attestation I examined this patient and my medical decision-making was reviewed with the Resident Physician. I agree with the documented findings, disposition and treatment plan as described except to the extent set forth below.
== END 2017-10-09 17:56 | disposition home or self-care (01) | DRG 812 ==
LOC: 2NNU 19:10 → EMEROO 19:10 → 2NNU 22:13
PROVIDERS: ADMIT Internal Medicine; ATTEND Internal Medicine

== ENCOUNTER 2017-11-10 12:51 | Inpatient (IN) ==
--- NOTE | 2017-11-10 13:55 | Emergency Department Note ---
Disposition Clinical Impression: CONNIE (acute kidney injury), Dehydration Disposition: Admitted As Inpatient Condition: Fair Referrals: Dong Lewis DO [Primary Care Provider] - Forms: ED Satisfaction Letter, Work/School Release Time of Disposition: 14:45 General Adult HPI - General Chief complaint: ED General Medical Stated complaint: Sent by oncologist for renal failure Time Seen by Provider: 11/10/17 13:36 Source: patient, family Mode of arrival: ambulatory Limitations: no limitations Nursing Notes Reviewed: Yes Vital Signs Reviewed: Yes - History of Present Illness HPI Narrative: 87-year-old history of bladder cancer who has not started treatment was seen by oncology yesterday and found to have a creatinine of 6.95. Her creatinine from a month ago was about 1.55. She has not been eating or drinking. She has had very little urine output at this point in time. Pt Subjective Complaint: Sent for abnormal lab Onset (ago): day(s) Pain Scale: 0 Associated symptoms: Reports: denies other symptoms - Related Data Home Medications Medication Instructions Recorded Confirmed Atorvastatin [Lipitor] 40 mg PO HS 01/29/16 11/10/17 Metoprolol XL (24 HR) Succ [Toprol 50 mg PO QAM 01/29/16 11/10/17 Xl] Amlodipine Besylate 10 mg PO QAM 10/07/17 11/10/17 Cholecalciferol (Vitamin D3) 10,000 unit PO FR 10/07/17 11/10/17 [Vitamin D3] Valsartan 320 mg PO QAM 10/07/17 11/10/17 Previous Rx's Medication Instructions Recorded Mirtazapine 7.5 mg PO DAILY #30 tablet 11/09/17 Allergies Allergy/AdvReac Type Severity Reaction Status Date / Time nifedipine [From Procardia] Allergy Hives Verified 10/07/17 19:29 IVP dye Allergy Vomiting Uncoded 10/07/17 19:29 All systems ED: reviewed and negative except as stated. Constitutional: Denies: fever, chills, weakness, weight change Eyes: Denies: eye pain, eye discharge, vision change ENT ED: Denies: ear pain, throat pain, dental pain, hearing loss, epistaxis, congestion, dysphagia Cardiovascular: Denies: chest pain, palpitations, dyspnea on exertion, edema, syncope Respiratory: Denies: cough, dyspnea, wheezes, hemoptysis, stridor Gastrointestinal: Denies: abdominal pain, nausea, vomiting, diarrhea, constipation, hematemesis, melena, hematochezia Genitourinary: Denies: dysuria, frequency, hematuria, discharge Musculoskeletal: Denies: back pain, neck pain, arthralgia, myalgia Integumentary: Denies: rash, abrasion, lesions Neurological: Denies: headache, weakness, numbness, paresthesias, confusion, abnormal gait, vertigo Psychiatric: Denies: anxiety, depression, suicidal thoughts, homicidal thoughts , auditory hallucinations, visual hallucinations Endocrine: Denies: fatigue Hematological/Lymphatic: Denies: easy bleeding, easy bruising Allergic/Immunologic: Denies: facial swelling, urticaria Past Medical History - Past Medical History Medical history: Reports: CVA, hyperlipidemia, hypertension, myocardial infarction, renal disease, valvular heart disease Surgical history: Reports: cataract, cholecystectomy, coronary bypass (CABG) Psychiatric history: Reports: anxiety - Social History Smoking Status: Never smoker Smokeless Tobacco Status: No Alcohol use: Reports: none Drug use: Reports: none Physical Exam - General Limitations: no limitations General appearance: alert - Head Head exam: atraumatic, normocephalic, normal inspection - Eye Eye exam: Present: normal appearance, PERRL, EOMI - ENT ENT exam: normal exam, normal oropharynx, mucous membranes moist - Neck Neck exam: Present: normal inspection, full ROM, trachea midline - Chest Chest inspection: Present: normal inspection, symmetric chest wall rise - Respiratory Respiratory exam: Present: normal lung sounds bilaterally - Cardiovascular Cardiovascular exam: Present: regular rate, normal rhythm, normal heart sounds - Abdominal Exam Abdominal exam: Present: soft, Non-Tender. Absent: tenderness, distention, guarding, rebound, rigidity - Extremities Exam Extremities exam: Present: normal inspection, full ROM. Absent: tenderness, pedal edema - Expanded Lower Extremity Exam Hip/Pelvis exam: Present: normal inspection Neurovascular/Tendon exam: Absent: motor deficit, sensory deficit, tendon deficit - Back Exam Back exam: Present: normal inspection, full ROM. Absent: tenderness - Neurological Exam Neurological exam: Present: alert, oriented X3 - Psychiatric Psychiatric exam: Present: normal affect, normal mood - Skin Skin exam: Present: warm, dry, intact, normal color Course - Reevaluation(s) Reevaluation #1: 87-year-old with history of bladder cancer comes in not eating or drinking and noted to have a creatinine 6.85 yesterday with previous creatinine 1.55 month ago. Sent here for hydration and admission by oncology. Time: 14:44 - Consultations Consultation #1: iscussed with , admit. Time: 14:45 Vital Signs Temperature 98.1 F 11/10/17 13:35 Pulse Rate 69 11/10/17 13:35 Respiratory Rate 18 11/10/17 13:35 Blood Pressure 126/71 11/10/17 13:35 O2 Sat by Pulse Oximetry 99 11/10/17 13:35 Temperature 98.1 F 11/10/17 13:35 Pulse Rate 69 11/10/17 13:35 Respiratory Rate 18 11/10/17 13:35 Blood Pressure 126/71 11/10/17 13:35 O2 Sat by Pulse Oximetry 99 11/10/17 13:35 Oxygen Delivery Oxygen Delivery Room Air Medical Decision Making - Lab Data Lab results reviewed: Yes I reviewed the patient's lab results. Result diagrams: 11/10/17 14:06 11/10/17 14:06 Lab Results 11/10/17 11/10/17 11/10/17 Range/Units 14:06 14:06 14:33 WBC 12.6 H (4.3-11.1) K/mcL RBC 4.07 (3.82-4.97) M/mcL Hgb 10.6 L (11.5-15.4) g/dL Hct 33.2 L (35.3-44.9) % MCV 81.6 L (83.0-100.0) fL MCH 26.0 L (28.0-33.3) pg MCHC 31.9 (31.6-35.5) g/dL RDW 17.5 H (11.5-14.5) % Plt Count 536 H (140-400) K/mcL MPV 9.3 L (9.4-12.4) fL Immature Gran % 0.6 (0-4) % Seg Neutrophils % 86.8 % Lymphocytes % 7.7 % Monocytes % 3.8 % Eosinophils % 0.5 % Basophils % 0.6 % Neutrophils # 10.9 H (1.6-8.9) K/mcL Lymphocytes # 1.0 (0.6-4.6) K/mcL Monocytes # 0.5 (0.0-1.3) K/mcL Eosinophils # 0.1 (0.0-0.6) K/mcL Basophils # 0.1 (0.0-0.2) K/mcL Sodium 133 L (136-145) mEq/L Potassium 5.5 H (3.5-5.1) mEq/L Chloride 103 (98-107) mEq/L Carbon Dioxide 17 L (23-29) mEq/L BUN 88 H (8-23) mg/dL Creatinine 6.83 H (0.60-1.20) mg/dL Est GFR ( Amer) 7 L (> 60) Est GFR (Non-Af Amer) 6 L (> 60) BUN/Creatinine Ratio 13 (6-26) Glucose 114 H (70-105) mg/dL Calculated Osmolality 304 H (280-300) Calcium 9.6 (8.6-10.3) mg/dL Total Bilirubin 0.5 (0.3-1.0) mg/dL Direct Bilirubin 0.3 H (0.0-0.2) mg/dL Indirect Bilirubin 0.2 (0.0-1.2) mg/dL AST 17 (13-39) Units/L ALT 5 L (7-52) Units/L Alkaline Phosphatase 92 (34-104) Units/L Serum Total Protein 6.9 (6.4-8.9) g/dL Albumin 3.4 L (3.5-5.7) g/dL Globulin 3.5 (2.4-3.5) g/dL Albumin/Globulin Ratio 1.0 L (1.1-2.2) Urine Color Yellow (Yellow) Urine Clarity Slightly Hazy (Clear) Urine pH 5.5 (5.0-8.0) pH Units Ur Specific [place] 1.024 (1.010-1.025) Urine Protein 30 H (Neg-Trace) mg/dL Urine Glucose (UA) Normal (Normal) mg/dL Urine Ketones Negative (Negative) mg/dL Urine Blood Large H (Negative) Urine Nitrite Negative (Negative) Urine Bilirubin Small H (Negative) Urine Urobilinogen Normal (Normal) mg/dL Ur Leukocyte Esterase Large H (Negative) Urine Microscopic RBC 3-5 H (0-3) per hpf Urine Microscopic WBC 50-100 H (0-3) per hpf Ur Squamous Epith Cells Moderate H (None-Few) per lpf Urine Bacteria Many H (None-Few) per hpf Hyaline Casts None Seen (None-Few) per lpf Ur Culture Indicated? YES A (NO) - Radiology Data Radiology results reviewed: Yes I reviewed the patient's radiology results.
[2017-11-10] MEDS: 0.9 % Sodium Chloride 1,000 ML IVC SCH (14:34)
[2017-11-10 14:41] LABS: Bilirubin,Urine Small (Negative); Blood,Urine Large (Negative); Color,Urine Yellow (Yellow); Glucose,Urine (UA) Normal (Normal); Ketones,Urine Negative (Negative); Leukocyte Esterase,Urine Large (Negative); Nitrite,Urine Negative (Negative); PH,Urine 5.5 pH Units (5.0-8.0); Protein,Urine 30 mg/dL (Neg-Trace); Specific Gravity,Urine 1.024 (1.010-1.025); Urobilinogen,Urine Normal (Normal)
[2017-11-10 14:42] LABS: Basophils # 0.1 K/mcL (0.0-0.2); Basophils % 0.6 %; Eosinophils # 0.1 K/mcL (0.0-0.6); Eosinophils % 0.5 %; Hematocrit 33.2 % (35.3-44.9); Hemoglobin 10.6 g/dL (11.5-15.4); Immature Granulocytes % 0.6 % (0-4); Lymphocytes % 7.7 %; Mean Corpuscular HGB Conc 31.9 g/dL (31.6-35.5); Mean Corpuscular Volume 81.6 fL (83.0-100.0); Mean Platelet Volume 9.3 fL (9.4-12.4); Monocytes # 0.5 K/mcL (0.0-1.3); Monocytes % 3.8 %; Neutrophils # 10.9 K/mcL (1.6-8.9); Platelet Count 536 K/mcL (140-400); Red Blood Count 4.07 M/mcL (3.82-4.97); Red Cell Distribution Width 17.5 % (11.5-14.5); Segmented Neutrophils % 86.8 %
[2017-11-10 14:45] LABS: Hyaline Casts,Urine None Seen per lpf (None-Few); WBC,Urine 50-100 per hpf (0-3)
[2017-11-10 14:47] LABS: Clarity,Urine Slightly Hazy (Clear)
[2017-11-10 14:49] LABS: Albumin 3.4 g/dL (3.5-5.7); Bilirubin,Direct 0.3 mg/dL (0.0-0.2); Bilirubin,Indirect 0.2 mg/dL (0.0-1.2); Bilirubin,Total 0.5 mg/dL (0.3-1.0); Calcium 9.6 mg/dL (8.6-10.3); Globulin 3.5 g/dL (2.4-3.5); Potassium 5.5 mEq/L (3.5-5.1); Total Protein 6.9 g/dL (6.4-8.9)
[2017-11-10 14:59] LABS: Bacteria,Urine Many per hpf (None-Few); Squamous Epithelial Cell,Urine Moderate per lpf (None-Few)
--- NOTE | 2017-11-10 15:03 | Internal Med History&Physical ---
Date of Encounter: 11/10/17 Time of Encounter: 15:01 Assessment and Plan (1) UTI (urinary tract infection) Current visit: Yes Status: Acute Was started on Rocephin and send urine culture Qualifiers: Urinary tract infection type: acute cystitis Hematuria presence: without hematuria Qualified Code(s): N30.00 - Acute cystitis without hematuria (2) CONNIE (acute kidney injury) Current visit: Yes Status: Acute Creatinine 6.9 most likely due to dehydration and poor by mouth intake Potassium 5.4 (3) Dehydration Current visit: Yes Status: Acute Dehydration due to poor by mouth intake (4) Coronary artery disease Current visit: No Status: Chronic No chest pain at present Qualifiers: Coronary Disease-Associated Artery/Lesion type: [place] artery [place] vs. transplanted heart: [place] heart Associated angina: without angina Qualified Code(s): I25.10 - Atherosclerotic heart disease of [place] coronary artery without angina pectoris (5) HLD (hyperlipidemia) Current visit: No Status: Chronic Chronic recheck in a.m. Qualifiers: Hyperlipidemia type: pure hypercholesterolemia Qualified Code(s): E78.00 - Pure hypercholesterolemia, unspecified; E78.0 - Pure hypercholesterolemia Internal Medicine - H&P: HPI Chief complaint: abn lab Admitted From: Emergency Dept Plans for Post Hospital Care: Home History of present illness: Ms. Garcia is a 87 year old female Patient with history of recent diagnosis with bladder cancer, CAD had a CABG in the past, hypertension, CVA, aortic valve replacement and high cholesterol. Patient was seen by oncologist office yesterday has some lab drawn which come back creatinine of 6.9 , a month ago creatinine was 1.5 patient was then sent to the ER to be admitted she has had poor by mouth intake with acute renal failure further ER labs evaluation shows a UTI patient will be admitted will consult nephrology continue IV hydration and encouraged to eat and drink as well and start Rocephin for UTI with cultures being sent. Past Med Surg Social Fam HX - Past Medical History Medical history: CVA, hyperlipidemia, hypertension, myocardial infarction, renal disease, valvular heart disease Psychiatric history: anxiety - Past Surgical History Surgical History: cataract, cholecystectomy, coronary bypass (CABG) - Social History Smoking Status: Never smoker Smokeless Tobacco Status: No Alcohol use: none Drug use: none - Family History Mother Living Status: Hx Family Cardiac Disorders: No Hx Family Respiratory Disorders: No Hx Family Cancer: No Hx Family GI Disorders: Yes (GERD) Hx Family Endocrine Disorder: Yes (DM) Hx Family Neuromuscular Disorders: No Hx Family Neurologic Disorders: No Hx Family HEENT Disorders: No Hx Family Autoimmune Disorders: No Father Living Status: Hx Family Cardiac Disorders: Yes (HTN, [place]) Hx Family Respiratory Disorders: Yes (Black lung) Hx Family Cancer: No Hx Family GI Disorders: No Hx Family Endocrine Disorder: No Hx Family Neuromuscular Disorders: No Hx Family Neurologic Disorders: No Hx Family HEENT Disorders: No Hx Family Autoimmune Disorders: No Internal Medicine - H&P: Meds Atorvastatin [Lipitor] 40 mg PO HS 01/29/16 [History] Metoprolol XL (24 HR) Succ [Toprol Xl] 50 mg PO QAM 01/29/16 [History] Amlodipine Besylate 10 mg PO QAM 10/07/17 [History] Cholecalciferol (Vitamin D3) [Vitamin D3] 10,000 unit PO FR 10/07/17 [History] Valsartan 320 mg PO QAM 10/07/17 [History] Mirtazapine 7.5 mg PO DAILY #30 tablet 11/09/17 [Rx] 3 Allergy/AdvReac Type Severity Reaction Status Date / Time nifedipine [From Procardia] Allergy Hives Verified 10/07/17 19:29 IVP dye Allergy Vomiting Uncoded 10/07/17 19:29 All Systems PM: A 10-system review of systems was performed and is negative for pertinent findings except as documented above in the HPI. - Constitutional Constitutional: anorexia, fatigue, lethargy - EENT Eyes: no change in vision, no discharge, no pain, no photophobia Ears: no ear discharge, no ear pain, no tinnitus Nose, mouth and throat: no dysphagia, no nasal discharge, no neck pain, no sore throat - Cardiovascular Cardiovascular ROS IM: no chest pain, no diaphoresis, no dyspnea, no lightheadedness, no palpitations, no syncope - Respiratory Respiratory: no cough, no dyspnea, no wheezing, no excessive phlegm production - Gastrointestinal Gastrointestinal: no abdominal pain, no diarrhea, no hematemesis, no hematochezia, no melena, no nausea, no vomiting - Genitourinary Genitourinary: no change in urinary stream, no dysuria, no flank pain, no hematuria - Musculoskeletal Musculoskeletal ROS IM: no numbness, no tingling - Constitutional Vitals: Temp Pulse Resp BP Pulse Ox 98.1 F 69 18 126/71 99 11/10/17 13:35 11/10/17 13:35 11/10/17 13:35 11/10/17 13:35 11/10/17 13:35 General appearance: Present: underweight - Eye Eye exam: Present: PERRL, conjuntiva pink, sclera anicteric Pupils: Present: PERRL - Neck Neck exam general surgery: Present: supple, trachea midline. Absent: lymphadenopathy - Respiratory Respiratory exam: Present: CTAB. Absent: accessory muscle use, rales, rhonchi, wheezes - Cardiovascular Cardiovascular exam: Present: RRR, +S1, +S2. Absent: diastolic murmur, gallop, rubs, systolic murmur - GI/Abdominal GI/Abdominal exam: Present: normal bowel sounds, soft, no peritoneal signs. Absent: distended, tenderness - Extremities Exam Extremities exam: Present: warm, radial pulses palpable and symmetrical. Absent : calf tenderness, cyanotic, pedal edema Internal Med - H&P Results - Labs CBC & Chem 7: 11/10/17 14:06 11/10/17 14:06 Labs: Short CBC 11/10/17 Range/Units 14:06 WBC 12.6 H (4.3-11.1) K/mcL Hgb 10.6 L (11.5-15.4) g/dL Hct 33.2 L (35.3-44.9) % Plt Count 536 H (140-400) K/mcL Neutrophils # 10.9 H (1.6-8.9) K/mcL BMP 11/10/17 14:06 Sodium 133 L Potassium 5.5 H Chloride 103 Carbon Dioxide 17 L BUN 88 H Creatinine 6.83 H Glucose 114 H Calcium 9.6 Liver Function 11/10/17 Range/Units 14:06 Total Bilirubin 0.5 (0.3-1.0) mg/dL Direct Bilirubin 0.3 H (0.0-0.2) mg/dL AST 17 (13-39) Units/L ALT 5 L (7-52) Units/L Alkaline Phosphatase 92 (34-104) Units/L Albumin 3.4 L (3.5-5.7) g/dL Urine 11/10/17 Range/Units 14:33 Urine Color Yellow (Yellow) Urine Clarity Slightly Hazy (Clear) Urine pH 5.5 (5.0-8.0) pH Units Ur Specific [place] 1.024 (1.010-1.025) Urine Protein 30 H (Neg-Trace) mg/dL Urine Glucose (UA) Normal (Normal) mg/dL
[2017-11-10] MEDS ORDERED: Naloxone 0.4 MG/ML INJ IVP PRN (15:09)
[2017-11-10] MEDS ORDERED: Acetaminophen 325 MG TABLET PO PRN (15:09)
[2017-11-10] MEDS ORDERED: traMADol 50 MG TABLET PO PRN (15:09)
[2017-11-10] MEDS ORDERED: cefTRIAXone 1,000 MG in Water for inj. (sterile) 20 ML 10 ML IVP ONE (15:10)
[2017-11-11] MEDS: 0.9 % Sodium Chloride 1,000 ML IVC SCH ×2 (01:11→10:08)
[2017-11-11] MEDS ORDERED: *HR* Enoxaparin 40 MG/0.4 ML SYRINGE SQ SCH (06:00)
[2017-11-11 06:11] LABS: Hematocrit 26.9 % (35.3-44.9); Mean Corpuscular Hemoglobin 26.2 pg (28.0-33.3); Mean Platelet Volume 9.3 fL (9.4-12.4); Platelet Count 408 K/mcL (140-400); Red Blood Count 3.28 M/mcL (3.82-4.97); Red Cell Distribution Width 17.4 % (11.5-14.5)
[2017-11-11 06:24] LABS: Hemoglobin 8.6 g/dL (11.5-15.4)
[2017-11-11 07:28] LABS: Albumin 2.5 g/dL (3.5-5.7); Albumin/Globulin Ratio 0.9 (1.1-2.2); Bilirubin,Total 0.4 mg/dL (0.3-1.0); Calcium 8.1 mg/dL (8.6-10.3); Chol/HDL Ratio 5.5 (0-4.9); Globulin 2.8 g/dL (2.4-3.5); Magnesium 2.4 mg/dL (1.6-2.6); Total Protein 5.3 g/dL (6.4-8.9)
--- NOTE | 2017-11-11 08:07 | Nephrology Consult Note ---
Date of Encounter: 11/11/17 Time of Encounter: 08:05 Assessment and Plan (1) CONNIE (acute kidney injury) Current Visit: Yes Status: Acute Patient has acute kidney injury in the setting of bladder cancer with partial tumor removal back in October. At that time the left ureteral orifice was unable to be identified. I suspect that the patient has worsening post renal obstruction as a cause for her acute injury. We will have her get a renal ultrasound. Urology should be consulted. She may require percutaneous nephrostomy tubes if in fact she is experiencing worsening post renal obstruction. (2) Bladder cancer Current Visit: No Status: Acute Qualifiers: Bladder location: unspecified site Qualified Code(s): C67.9 - Malignant neoplasm of bladder, unspecified History of Present Illness - History of Present Illness This is an 87-year-old female diagnosed with bladder cancer approximately 2 months ago when she was experiencing gross hematuria. The patient underwent cystoscopy and partial bladder tumor removal on October 20. At that time according to the operative report the left ureteral orifice was unable to be identified. Patient's serum creatinine had been ranging from 1.5-1.8. Patient apparently had lab drawn by her oncologist in she was noted to have a creatinine of 6.9. She subsequently was sent to the emergency room and admitted to the hospital. Patient has bladder incontinence. There is no recent hematuria. She has not been using nonsteroidal anti-inflammatory agents. She had about a week's history of an illness consisting of some diarrhea and nausea. Currently she says those symptoms have resolved and she is no longer experiencing any GI symptoms. She says overall she feels relatively well. Next Past history significant for valvular heart disease with bovine valve replacement, hypertension, and bladder cancer as noted above. Past Med Surg Social Fam HX - Past Medical History Medical history: CVA, hyperlipidemia, hypertension, myocardial infarction, renal disease, valvular heart disease Psychiatric history: anxiety - Past Surgical History Surgical History: cataract, cholecystectomy, coronary bypass (CABG) - Social History Smoking Status: Never smoker Smokeless Tobacco Status: No Alcohol use: none Drug use: none - Family History Mother Living Status: Hx Family Cardiac Disorders: No Hx Family Respiratory Disorders: No Hx Family Cancer: No Hx Family GI Disorders: Yes (GERD) Hx Family Endocrine Disorder: Yes (DM) Hx Family Neuromuscular Disorders: No Hx Family Neurologic Disorders: No Hx Family HEENT Disorders: No Hx Family Autoimmune Disorders: No Father Living Status: Hx Family Cardiac Disorders: Yes (HTN, [place]) Hx Family Respiratory Disorders: Yes (Black lung) Hx Family Cancer: No Hx Family GI Disorders: No Hx Family Endocrine Disorder: No Hx Family Neuromuscular Disorders: No Hx Family Neurologic Disorders: No Hx Family HEENT Disorders: No Hx Family Autoimmune Disorders: No Medications and Allergies Atorvastatin [Lipitor] 40 mg PO HS 01/29/16 [History] Metoprolol XL (24 HR) Succ [Toprol Xl] 50 mg PO QAM 01/29/16 [History] Amlodipine Besylate 10 mg PO QAM 10/07/17 [History] Cholecalciferol (Vitamin D3) [Vitamin D3] 10,000 unit PO FR 10/07/17 [History] Valsartan 320 mg PO QAM 10/07/17 [History] Mirtazapine 7.5 mg PO DAILY #30 tablet 11/09/17 [Rx] 3 Allergy/AdvReac Type Severity Reaction Status Date / Time nifedipine [From Procardia] Allergy Hives Verified 10/07/17 19:29 IVP dye Allergy Vomiting Uncoded 10/07/17 19:29 Review of Systems Constitutional: as per HPI Eyes: bilateral: blurred vision (patient denies), diplopia (patient denies) Nose, mouth and throat: no dizziness, no headache(s) Cardiovascular: as per HPI, dyspnea on exertion Respiratory: dyspnea on exertion, no cough, no dyspnea Gastrointestinal: no abdominal pain, no change in bowel habits Genitourinary Female: hematuria, urinary incontinence Musculoskeletal: no muscle weakness, no numbness Integumentary: no hirsutism, no striae Neurological: as per HPI Psychiatric: no depression, no difficulty concentrating Endocrine: as per HPI Hematologic/Lymphatic: no easy bruising, no lymphadenopathy Exam - Vital Signs Vital signs: Initial Vital Signs Temp Pulse Resp BP Pulse Ox 98.1 F 69 18 126/71 99 11/10/17 13:35 11/10/17 13:35 11/10/17 13:35 11/10/17 13:35 11/10/17 13:35 Vital Signs - Last 8 Hours Temp Pulse Resp BP Pulse Ox 11/11/17 07:36 98.4 F 66 16 132/83 95 11/11/17 05:35 98.3 F 67 16 127/71 93 11/11/17 00:47 98 F 66 17 127/72 93 Intake and Output 11/10/17 11/11/17 11/11/17 23:59 07:59 15:59 Intake Total 1000 / 1000 Balance 1000 / 1000 Intake: IV Fluids 1000 / 1000 0.9 % Sodium Chloride 1,000 ML 1000 / 1000 @ 125 mls/hr IVC .Q8H COLLINS Rx#: [id number] Other: Weight 28.576 kg 28.6 kg Patient Weight 11/11/17 23:59 Weight 28.6 kg - General Appearance Exam: Patient is alert and oriented. She is in no acute distress. Lungs essentially clear to auscultation. Heart regular rate and rhythm with a soft systolic murmur. There is no friction rub. Abdomen shows normal bowel sounds bruits masses in a megaly or tenderness. Lower extremity shows some mild lower extremity swelling. Results - Lab Results 11/11/17 05:23 11/11/17 05:23 Most recent lab results Calcium 8.1 mg/dL (8.6-10.3) L 11/11/17 05:23 Magnesium 2.4 mg/dL (1.6-2.6) 11/11/17 05:23 Consult Discharge Plan - Plan Referrals: Dong Lewis DO [Primary Care Provider] -
[2017-11-11] MEDS: amLODIPine 5 MG TABLET PO SCH (10:06)
[2017-11-11] MEDS: Cholecalciferol (D-3) 1,000 UNIT TABLET PO SCH (10:06)
[2017-11-11] MEDS: Mirtazapine 15 MG TABLET PO SCH (10:06)
[2017-11-11] MEDS: cefTRIAXone 1,000 MG in Water for inj. (sterile) 20 ML 10 ML IVP SCH (10:06)
[2017-11-11] MEDS: Metoprolol XL (24 HR) Succ 50 MG TAB.ER.24H PO SCH (10:06)
--- NOTE | 2017-11-11 10:19 | Oncology Inp Consult Note ---
<Louise Myles L - Last Filed: 11/11/17 17:06> Date of Encounter: 11/11/17 Time of Encounter: 08:00 Assessment and Plan (1) Bladder cancer Status: Chronic Assessment and plan: Locally advanced high-grade invasive urothelial carcinoma. Further staging pending PET/CT which will need to be rescheduled as outpatient. As detailed in HPI, patient and patients family wish to proceed with palliative radiotherapy, likely followed with PD L1 inhibition treatment. Discussed treatment today and they wish to continue down this path once her acute issues resolve. Patient and patients family understand that hospice is another viable option which is available to patient at any time she wises. Further workup and treatment finalization to be completed on outpatient basis. Qualifiers: Bladder location: overlapping sites Qualified Code(s): C67.8 - Malignant neoplasm of overlapping sites of bladder (2) Anemia Status: Acute Assessment and plan: Hgb 8.6 today, multifactorial secondary to CKD and iron deficiency. She is unable to tolerate oral iron. She was planned to receive IV iron, will replace during hospital stay. Qualifiers: Anemia type: unspecified type Qualified Code(s): D64.9 - Anemia, unspecified (3) CONNIE (acute kidney injury) Status: Acute Assessment and plan: Given tumor involvement as discussed in HPI, worsening renal obstruction is of concern. RP ultrasound notes moderate to severe hydronephrosis bilaterally, question of punctate nonobstructing renal stones bilaterally, urinary bladder wall thickening with marked irregularity compatible with history of known bladder cancer. Appreciate nephrology and urology consultation recommendations. Patient and patients family are amendable to nephrostomy tube placement if needed. She is receiving IVF hydration for concern for dehydration following recent GI illness. UA indicates UTI, she is on rocephin, culture pending. As noted above, further cancer treatment to be pursued on outpatient basis once acute issues resolve. Please refer to Dr. Capone's attestation below for additional details. - Data of Consult Patient: known to practice within the last 3 years Consult date: 11/11/17 Requesting Physician: Jennyfer Mccarty MD Primary Care Provider: Dong Lewis - Consult Narrative Reason for consult: High-grade invasive urothelial carcinoma History of present illness: Ms. Garcia is a 87 year old female with oncologic history significant for locally advanced high-grade invasive urothelial carcinoma. She underwent TURBT 10/20/2014 were she is found to have a tumor located in the left aspect of the bladder extending from the bladder neck all the way up to the dome. He was able to visualize the right ureteral orifice, the left ureteral orifice was not visualized secondary tumor burden. The patient underwent debulking with fulguration of the remainder the tumor. Muscle was visualized and there was no evidence of perforation. At time of surgery, Dr. Zapata found the tumor to be fixed and involves the anterior vaginal wall. At her most recent clinic visit with Dr. Capone treatment options were discussed. Given the patients age and comorbidities, surgical intervention is not a viable options for her and she in addition to this does not want to pursue surgical options. The patient also does not wish to pursue concurrent chemoradiation for which she is also not the ideal candidate for. Palliative modalities were then discussed which would include palliative radiotherapy to the bladder to decrease risk of bleeding and pain. Following radiotherapy, she is planned to likely start PDL1 inhibition therapy following further discussion. At this time , the family would like to explore treatment options, but are open to further hospice and end of life discussions in future when appropriate. She is planned for further PET/CT workup for staging with then finalization of her treatment plan and consultation with radiation oncology. She was asked to present to ER by Dr. Capone, following her lab results indicating CONNIE superimposed on CKD of Creatinine 6.96 and BUN 88. Renal obstruction was of concern secondary to tumor involvement. She was asked to present to ER for further workup and management with nephrology/urology consultation. Past Med Surg Social Fam HX - Past Medical History Medical history: CVA, hyperlipidemia, hypertension, myocardial infarction, renal disease, valvular heart disease Psychiatric history: anxiety - Past Surgical History Surgical History: cataract, cholecystectomy, coronary bypass (CABG) - Social History Smoking Status: Never smoker Smokeless Tobacco Status: No Alcohol use: none Drug use: none - Family History Mother Living Status: Hx Family Cardiac Disorders: No Hx Family Respiratory Disorders: No Hx Family Cancer: No Hx Family GI Disorders: Yes (GERD) Hx Family Endocrine Disorder: Yes (DM) Hx Family Neuromuscular Disorders: No Hx Family Neurologic Disorders: No Hx Family HEENT Disorders: No Hx Family Autoimmune Disorders: No Father Living Status: Hx Family Cardiac Disorders: Yes (HTN, [place]) Hx Family Respiratory Disorders: Yes (Black lung) Hx Family Cancer: No Hx Family GI Disorders: No Hx Family Endocrine Disorder: No Hx Family Neuromuscular Disorders: No Hx Family Neurologic Disorders: No Hx Family HEENT Disorders: No Hx Family Autoimmune Disorders: No Medications and Allergies Atorvastatin [Lipitor] 40 mg PO HS 01/29/16 [History] Metoprolol XL (24 HR) Succ [Toprol Xl] 50 mg PO QAM 01/29/16 [History] Amlodipine Besylate 10 mg PO QAM 10/07/17 [History] Cholecalciferol (Vitamin D3) [Vitamin D3] 10,000 unit PO FR 10/07/17 [History] Valsartan 320 mg PO QAM 10/07/17 [History] Mirtazapine 7.5 mg PO DAILY #30 tablet 11/09/17 [Rx] 3 Allergy/AdvReac Type Severity Reaction Status Date / Time nifedipine [From Procardia] Allergy Hives Verified 10/07/17 19:29 IVP dye Allergy Vomiting Uncoded 10/07/17 19:29 Constitutional: Present: anorexia, fatigue, weakness, weight loss. Absent: chills, fever(s) Eyes: Absent: change in vision Nose, mouth and throat: Absent: dysphagia Cardiovascular: Absent: chest pain, irregular heart rhythm Respiratory: Absent: cough, dyspnea Gastrointestinal: Present: as per HPI Additional comments: Recent GI illness about 1 week ago with nausea/diarrhea, symptoms have since resolved Genitourinary: Present: hematuria (history of, denies hematuria presently), urinary incontinence Musculoskeletal: Present: muscle weakness Integumentary: Absent: wounds Neurological: Absent: focal weakness, frequent falls Psychiatric: Present: change in appetite Hematologic/Lymphatic: Present: as per HPI Oncology - Exam - Constitutional Vitals: Temp Pulse Resp BP Pulse Ox 98.4 F 66 16 132/83 95 11/11/17 07:36 11/11/17 07:36 11/11/17 07:36 11/11/17 07:36 11/11/17 07:36 General appearance: cooperative, no acute distress, thin, no febrile - Head Head exam: Present: atraumatic - ENT ENT exam: Present: mucous membranes moist - Respiratory Respiratory exam: Present: CTAB. Absent: respiratory distress - Cardiovascular Cardiovascular exam: Present: RRR, +S1, +S2, systolic murmur - GI/Abdominal GI/Abdominal exam: Present: normal bowel sounds, soft, tenderness Additional comments: lower mid abdominal tenderness - Extremities Exam Extremities exam: Present: pedal edema. Absent: calf tenderness - Neurological Exam Neurological exam: Present: alert, oriented X3, no focal deficits, strengths equal and symetr throughout - Psychiatric Psychiatric exam: Present: normal affect, normal mood - Skin Skin exam: Present: dry, intact, normal color, warm Oncology - Results Labs: Short CBC 11/11/17 Range/Units 05:23 WBC 8.9 (4.3-11.1) K/mcL Hgb 8.6 L D (11.5-15.4) g/dL Hct 26.9 L (35.3-44.9) % Plt Count 408 H (140-400) K/mcL BMP 11/11/17 05:23 Sodium 134 L Potassium 5.0 Chloride 107 Carbon Dioxide 17 L BUN 80 H Creatinine 6.96 H Glucose 79 Calcium 8.1 L Liver Function 11/11/17 Range/Units 05:23 Total Bilirubin 0.4 (0.3-1.0) mg/dL AST 14 (13-39) Units/L ALT 4 L (7-52) Units/L Alkaline Phosphatase 66 (34-104) Units/L Albumin 2.5 L (3.5-5.7) g/dL Consult Discharge Plan - Plan Referrals: Dong Lewis, [Primary Care Provider] - <Marcos Capone - Last Filed: 11/12/17 07:18> Date of Encounter: 11/12/17 - Data of Consult Requesting Physician: Jennyfer Mccarty MD Primary Care Provider: Dong Lewis - Consult Narrative History of present illness: Ms. Garcia is a 87 year old female Oncology - Exam - Constitutional Vitals: Temp Pulse Resp BP Pulse Ox 98.4 F 77 16 119/75 96 11/12/17 05:55 11/12/17 05:55 11/12/17 05:55 11/12/17 05:55 11/12/17 05:55 Oncology - Results Labs: Short CBC 11/12/17 Range/Units 04:06 WBC 6.8 (4.3-11.1) K/mcL Hgb 9.0 L (11.5-15.4) g/dL Hct 28.1 L (35.3-44.9) % Plt Count 448 H (140-400) K/mcL Neutrophils # 6.1 (1.6-8.9) K/mcL BMP 11/11/17 11/12/17 05:23 04:06 Sodium 134 L 135 L Potassium 5.0 5.5 H Chloride 107 109 H Carbon Dioxide 17 L 16 L BUN 80 H 74 H Creatinine 6.96 H 5.86 H Glucose 79 125 H Calcium 8.1 L 8.5 L Liver Function 11/11/17 11/12/17 Range/Units 05:23 04:06 Total Bilirubin 0.4 0.4 (0.3-1.0) mg/dL AST 14 14 (13-39) Units/L ALT 4 L 4 L (7-52) Units/L Alkaline Phosphatase 66 73 (34-104) Units/L Albumin 2.5 L 2.7 L (3.5-5.7) g/dL - Attending Attestation I have seen and examined Ms. Garcia and agree with the assessment by Ms. myles. I met this patient earlier this week for consultation of newly diagnosed locally advanced bladder cancer. She has known ureteral obstruction from her tumor. I assessed kidney function at time of consultation was returned acute kidney injury secondary to obstruction. I do not think her acute kidney injury secondary to poor oral intake but this may be contributing. I arranged for ultrasound of the retroperitoneum to look for hydronephrosis. She will likely need bilateral nephrostomy tubes. We also discussed not pursuing any therapy and instead going with hospice which would be reasonable for this patient. However, the family has decided to proceed with an assertive route. They will likely proceed with nephrostomy tubes if indicated. This will be followed by palliative radiotherapy to the bladder then we will can discuss immunotherapy upon completion of XRT or, again, hospice depending upon the performance status of the patient. Nephrology has been consulted to aid in her care.
--- NOTE | 2017-11-11 11:27 | Urology - Consult Note ---
Date of Encounter: 11/11/17 Time of Encounter: 11:25 - Assessment and Plan (1) Hydronephrosis due to obstruction of ureter Current Visit: Yes Status: Acute Assessment and plan: Patient has moderate to severe hydronephrosis on renal ultrasound. We will need to obtain CT abdomen and pelvis to better clarify cause. (2) CONNIE (acute kidney injury) Current Visit: Yes Status: Acute Assessment and plan: This is most likely secondary to obstruction secondary to invasive bladder cancer. Expect this to improve with nephrostomy tube placement. (3) Bladder cancer Current Visit: No Status: Acute Assessment and plan: I plan to the patient and her family that it appears that her bladder cancer has become more aggressive and locally spread to obstruct her distal ureters. I will obtain a CT abdomen and pelvis without contrast to better clarify this. I did discuss with them options of nephrostomy tube placement, dialysis, hospice care. At this point the patient and her family would like to proceed with bilateral nephrostomy tube placements. This will allow her to continue with scheduled radiation of her bladder and potential chemotherapy. I discussed this with the interventional radiologist and he agrees to place the nephrostomy tubes. Qualifiers: Bladder location: overlapping sites Qualified Code(s): C67.8 - Malignant neoplasm of overlapping sites of bladder Urology CN:HPI Consult date: 11/11/17 Reason for consult Urology: Hydronephrosis Requesting physician: Patience Grant History of present illness: Kelsea is a 87-year-old female well-known to urology service. Patient underwent TURBT by Dr. Zapata in early October 2017. Patient was found to have aggressive bladder cancer at that time. Pathology was high-grade T1 at least. No muscle was seen in specimen. Patient's bladder was fixed in the pelvis. Patient now is admitted secondary to acute renal failure. Patient's serum creatinine was 6.8. This is up from her baseline in the mid 1 range. Patient denies any new pain. She has been having minimal urine output. Minimal by mouth intake for the past couple days. Patient had a renal ultrasound which showed bilateral hydronephrosis. Past Med Surg Social Fam HX - Past Medical History Medical history: CVA, hyperlipidemia, hypertension, myocardial infarction, renal disease, valvular heart disease Psychiatric history: anxiety - Past Surgical History Surgical History: cataract, cholecystectomy, coronary bypass (CABG) - Social History Smoking Status: Never smoker Smokeless Tobacco Status: No Alcohol use: none Drug use: none - Family History Mother Living Status: Hx Family Cardiac Disorders: No Hx Family Respiratory Disorders: No Hx Family Cancer: No Hx Family GI Disorders: Yes (GERD) Hx Family Endocrine Disorder: Yes (DM) Hx Family Neuromuscular Disorders: No Hx Family Neurologic Disorders: No Hx Family HEENT Disorders: No Hx Family Autoimmune Disorders: No Father Living Status: Hx Family Cardiac Disorders: Yes (HTN, [place]) Hx Family Respiratory Disorders: Yes (Black lung) Hx Family Cancer: No Hx Family GI Disorders: No Hx Family Endocrine Disorder: No Hx Family Neuromuscular Disorders: No Hx Family Neurologic Disorders: No Hx Family HEENT Disorders: No Hx Family Autoimmune Disorders: No Medications and Allergies Atorvastatin [Lipitor] 40 mg PO HS 01/29/16 [History] Metoprolol XL (24 HR) Succ [Toprol Xl] 50 mg PO QAM 01/29/16 [History] Amlodipine Besylate 10 mg PO QAM 10/07/17 [History] Cholecalciferol (Vitamin D3) [Vitamin D3] 10,000 unit PO FR 10/07/17 [History] Valsartan 320 mg PO QAM 10/07/17 [History] Mirtazapine 7.5 mg PO DAILY #30 tablet 11/09/17 [Rx] 3 Allergy/AdvReac Type Severity Reaction Status Date / Time nifedipine [From Procardia] Allergy Hives Verified 10/07/17 19:29 IVP dye Allergy Vomiting Uncoded 10/07/17 19:29 Review of Systems - Constitutional no chills, no fever(s) - EENT Nose, mouth and throat: no dizziness - Cardiovascular no chest pain, no dyspnea - Respiratory no cough, no dyspnea - Gastrointestinal no abdominal pain - Genitourinary Genitourinary: as per HPI - Musculoskeletal no back pain - Integumentary no erythema, no swelling - Neurological no confusion - Psychiatric no confusion, no depression - Hematologic/Lymphatic no lymphadenopathy Exam Initial Vital Signs Temp Pulse Resp BP Pulse Ox 98.1 F 69 18 126/71 99 11/10/17 13:35 11/10/17 13:35 11/10/17 13:35 11/10/17 13:35 11/10/17 13:35 General: alert and oriented Eyes: pupils normal, non-icteric Neck: no lymphadenopathy noted, supple to touch Cardiovascular: RRR, no murmurs, no jvd Respiratory: normal respiratory effort, clear bilaterally, no wheezes ABD: soft, nontender, no masses palpated, good bowel sounds Back: no pain on percussion bilaterally, spine straight and nontender Skin: no rashes noted Musculoskeletal: FROMx4, good strength bilaterally Psych: appropriate affect, alert to time and place Urology Results - Labs 11/11/17 05:23 11/11/17 05:23 Abnormal lab results RBC 3.28 M/mcL (3.82-4.97) L 11/11/17 05:23 Hgb 8.6 g/dL (11.5-15.4) L D 11/11/17 05:23 Hct 26.9 % (35.3-44.9) L 11/11/17 05:23 MCV 82.0 fL (83.0-100.0) L 11/11/17 05:23 MCH 26.2 pg (28.0-33.3) L 11/11/17 05:23 RDW 17.4 % (11.5-14.5) H 11/11/17 05:23 Plt Count 408 K/mcL (140-400) H 11/11/17 05:23 MPV 9.3 fL (9.4-12.4) L 11/11/17 05:23 Neutrophils # 10.9 K/mcL (1.6-8.9) H 11/10/17 14:06 Sodium 134 mEq/L (136-145) L 11/11/17 05:23 Carbon Dioxide 17 mEq/L (23-29) L 11/11/17 05:23 BUN 80 mg/dL (8-23) H 11/11/17 05:23 Creatinine 6.96 mg/dL (0.60-1.20) H 11/11/17 05:23 Est GFR ( Amer) 7 (> 60) L 11/11/17 05:23 Est GFR (Non-Af Amer) 6 (> 60) L 11/11/17 05:23 Calculated Osmolality 301 (280-300) H 11/11/17 05:23 Calcium 8.1 mg/dL (8.6-10.3) L 11/11/17 05:23 Direct Bilirubin 0.3 mg/dL (0.0-0.2) H 11/10/17 14:06 ALT 4 Units/L (7-52) L 11/11/17 05:23 Serum Total Protein 5.3 g/dL (6.4-8.9) L 11/11/17 05:23 Albumin 2.5 g/dL (3.5-5.7) L 11/11/17 05:23 Albumin/Globulin Ratio 0.9 (1.1-2.2) L 11/11/17 05:23 Triglycerides 173 mg/dL (< 150) H 11/11/17 05:23 VLDL Cholesterol, Calc 35 mg/dL (< 31) H 11/11/17 05:23 HDL Cholesterol 21 mg/dL (40-59) L 11/11/17 05:23 Cholesterol/HDL Ratio 5.5 (0-4.9) H 11/11/17 05:23 Urine Protein 30 mg/dL (Neg-Trace) H 11/10/17 14:33 Urine Blood Large (Negative) H 11/10/17 14:33 Urine Bilirubin Small (Negative) H 11/10/17 14:33 Ur Leukocyte Esterase Large (Negative) H 11/10/17 14:33 Urine Microscopic RBC 3-5 per hpf (0-3) H 11/10/17 14:33 Urine Microscopic WBC 50-100 per hpf (0-3) H 11/10/17 14:33 Ur Squamous Epith Cells Moderate per lpf (None-Few) H 11/10/17 14:33 Urine Bacteria Many per hpf (None-Few) H 11/10/17 14:33 Ur Culture Indicated? YES (NO) A 11/10/17 14:33 Diabetes panel 11/11/17 Range/Units 05:23 Sodium 134 L (136-145) mEq/L Potassium 5.0 (3.5-5.1) mEq/L Chloride 107 (98-107) mEq/L Carbon Dioxide 17 L (23-29) mEq/L BUN 80 H (8-23) mg/dL Creatinine 6.96 H (0.60-1.20) mg/dL Glucose 79 (70-105) mg/dL Calcium 8.1 L (8.6-10.3) mg/dL AST 14 (13-39) Units/L ALT 4 L (7-52) Units/L Alkaline Phosphatase 66 (34-104) Units/L Albumin 2.5 L (3.5-5.7) g/dL Triglycerides 173 H (< 150) mg/dL HDL Cholesterol 21 L (40-59) mg/dL Calcium panel 11/11/17 Range/Units 05:23 Calcium 8.1 L (8.6-10.3) mg/dL Albumin 2.5 L (3.5-5.7) g/dL Pituitary panel 11/11/17 Range/Units 05:23 Sodium 134 L (136-145) mEq/L Potassium 5.0 (3.5-5.1) mEq/L Chloride 107 (98-107) mEq/L Carbon Dioxide 17 L (23-29) mEq/L BUN 80 H (8-23) mg/dL Creatinine 6.96 H (0.60-1.20) mg/dL Glucose 79 (70-105) mg/dL Calcium 8.1 L (8.6-10.3) mg/dL Adrenal panel 11/11/17 Range/Units 05:23 Sodium 134 L (136-145) mEq/L Potassium 5.0 (3.5-5.1) mEq/L Chloride 107 (98-107) mEq/L Carbon Dioxide 17 L (23-29) mEq/L BUN 80 H (8-23) mg/dL Creatinine 6.96 H (0.60-1.20) mg/dL Glucose 79 (70-105) mg/dL Calcium 8.1 L (8.6-10.3) mg/dL Total Bilirubin 0.4 (0.3-1.0) mg/dL AST 14 (13-39) Units/L ALT 4 L (7-52) Units/L Alkaline Phosphatase 66 (34-104) Units/L Albumin 2.5 L (3.5-5.7) g/dL All other labs normal. - Imaging US - abdomen: image reviewed Consult Discharge Plan - Plan Referrals: Dong Lewis DO [Primary Care Provider] -
--- NOTE | 2017-11-11 11:58 | Internal Med Progress Note ---
Date of Encounter: 11/11/17 Time of Encounter: 11:06 - Assessment and plan (1) CONNIE (acute kidney injury) Current Visit: Yes Status: Acute Assessment and plan: Likely post renal obstruction in the setting of bladder CA nephrology and urology input appreciated Renal US reported b/l moderate to severe hydronephrosis Pt to be scheduled for bilateral nephrostomy tubes by IR continue IV fluids will continue to closely monitor renal function (2) UTI (urinary tract infection) Current Visit: Yes Status: Acute Assessment and plan: continue IV Ceftriaxone f/u urine cultures Qualifiers: Urinary tract infection type: acute cystitis Hematuria presence: without hematuria Qualified Code(s): N30.00 - Acute cystitis without hematuria (3) Bladder cancer Current Visit: No Status: Chronic Assessment and plan: Oncology on board and evaluation appreciated Qualifiers: Bladder location: overlapping sites Qualified Code(s): C67.8 - Malignant neoplasm of overlapping sites of bladder (4) DVT prophylaxis Current Visit: No Status: Acute Assessment and plan: SCD (5) HLD (hyperlipidemia) Current Visit: No Status: Chronic Assessment and plan: continue home dose of lipitor Qualifiers: Hyperlipidemia type: pure hypercholesterolemia Qualified Code(s): E78.00 - Pure hypercholesterolemia, unspecified; E78.0 - Pure hypercholesterolemia (6) HTN (hypertension) Current Visit: No Status: Chronic Assessment and plan: BP within acceptable range continue home dose of Amlodipine and Metoprolol holding Valsartan given renal function will closely monitor BP Qualifiers: Hypertension type: essential hypertension Qualified Code(s): I10 - Essential (primary) hypertension (7) Underweight Current Visit: Yes Status: Acute Assessment and plan: likely secondary to underlying malignancy will obtain nutrition consultation - Time Spent With Patient Total time spent is greater than 50% in coordination of care (as documented) at patient's floor/unit and/or counseling patient: - Subjective Interval history: Patient seen and examined with family present at bedside. Pt denies any discomfort. Reports of minimal PO intake for the last month. Urology and nephrology on board. IR consulted for b/l nephrostomy tubes placement - Constitutional Vitals: Temp Pulse Resp BP Pulse Ox 98.4 F 66 16 132/83 95 11/11/17 07:36 11/11/17 07:36 11/11/17 07:36 11/11/17 07:36 11/11/17 07:36 General appearance: Present: cachectic, A&O X 3 (frail appearing elderly female) , no acute distress, underweight - Head Head exam: Present: atraumatic - Eye Eye exam: Present: conjuntiva pink, sclera anicteric - Respiratory Respiratory exam: Present: CTAB. Absent: respiratory distress, wheezes - Cardiovascular Cardiovascular exam: Present: RRR, +S1, +S2. Absent: diastolic murmur, gallop, rubs, systolic murmur - GI/Abdominal GI/Abdominal exam: Present: normal bowel sounds, soft, no peritoneal signs. Absent: distended, tenderness - Extremities Exam Extremities exam: Present: warm, radial pulses palpable and symmetrical. Absent : calf tenderness, tenderness - Neurological Exam Neurological exam: Present: oriented X3 Internal Medicine: Result - Labs CBC & Chem 7: 11/11/17 05:23 11/11/17 05:23 Labs: Short CBC 11/11/17 Range/Units 05:23 WBC 8.9 (4.3-11.1) K/mcL Hgb 8.6 L D (11.5-15.4) g/dL Hct 26.9 L (35.3-44.9) % Plt Count 408 H (140-400) K/mcL BMP 11/11/17 05:23 Sodium 134 L Potassium 5.0 Chloride 107 Carbon Dioxide 17 L BUN 80 H Creatinine 6.96 H Glucose 79 Calcium 8.1 L Liver Function 11/11/17 Range/Units 05:23 Total Bilirubin 0.4 (0.3-1.0) mg/dL AST 14 (13-39) Units/L ALT 4 L (7-52) Units/L Alkaline Phosphatase 66 (34-104) Units/L Albumin 2.5 L (3.5-5.7) g/dL - Impressions Impressions Retroperitoneum Ultrasound 11/11/17 09:00 IMPRESSION: 1. Moderate to severe hydronephrosis bilaterally. 2. Question of punctate nonobstructing renal stones bilaterally. 3. Urinary bladder wall thickening with marked irregularity compatible with history of known bladder cancer. D/ / Dylon Garcia MD / Dylon Garcia MD Interpreting Provider: Dylon Garcia MD Consult Discharge Plan - Plan Referrals: Dong Lewis DO [Primary Care Provider] -
[2017-11-11] MEDS ORDERED: Sodium Bicarbonate 50 MEQ in 0.45 % Sodium Chloride 1,000 ML IVC SCH (12:15)
[2017-11-11 14:31] LABS: INR 1.1; Prothrombin Time 11.5 Seconds (9.4-12.1)
[2017-11-11] MEDS ORDERED: Hydrocortisone Sodium Succ 100 MG/2 ML VIAL IVP ONE (15:29)
[2017-11-11] MEDS ORDERED: 0.9 % Sodium Chloride 1,000 ML ONE (15:34)
[2017-11-11] MEDS ORDERED: *HR* Midazolam HCl 2 MG/2 ML VIAL IVP ONE (16:49)
[2017-11-11] MEDS ORDERED: *HR* FentaNYL (PF) 100 MCG/2 ML VIAL IVP ONE (16:49)
[2017-11-11] MEDS: Sodium Bicarbonate 75 MEQ in 0.45 % Sodium Chloride 1,000 ML IVC SCH (16:51)
--- NOTE | 2017-11-11 16:51 | Pre-Sedation Evaluation ---
Pre-sedation evaluation - Pre-sedation checklist Date of procedure: 11/11/17 Procedure: bilateral PCN placement Recent Vitals: Last Vital Signs Temp 98.4 F 11/11/17 07:36 Pulse 66 11/11/17 07:36 Resp 16 11/11/17 07:36 BP 132/83 11/11/17 07:36 Pulse Ox 95 11/11/17 07:36 H&P (including ROS) documented in medical record: Yes Previous reaction to sedatives/anesthetics: No Dietary Status: NPO after Midnight Airway Assessment: Patient can open mouth completely, TMJ function normal, Micrognathia (under-bite, receding chin) absent, Neck with adequate range of motion Dentition: dentures removed ASA Classification *see protocol: CLASS II-Mild systemic disease Plan of Care: Pt appropriate candidate for procedure/moderate/conscious sedation , Risks/benefits of procedure/sedation discussed w/ patient/family, If not NPO; Risk of intake outweiged by necessity to perform procedure
[2017-11-11] MEDS ORDERED: *HR* Heparin 5,000 UNIT/ML VIAL SQ SCH (18:00)
--- NOTE | 2017-11-11 18:16 | IR Procedure Note ---
Date of procedure: 11/11/17 Consent Obtained: Verbal consent, Written consent Timeout: Correct patient and procedure verified, Correct site verified, Time out performed, Skin prep completed Local anesthetic: Lidocaine 1% Indications: hydronephrosis Procedure Performed: bilateral PCN insertion Was there an patient observation assistant present: No Estimated blood loss (cc): 2 Complications: None; Tolerated procedure well Post Procedure Treatment Plan: gravity drainage Specimen: none
[2017-11-12 04:29] LABS: Basophils % 0.1 %; Hematocrit 28.1 % (35.3-44.9); Immature Granulocytes % 0.9 % (0-4); Lymphocytes # 0.6 K/mcL (0.6-4.6); Lymphocytes % 8.3 %; Mean Corpuscular Hemoglobin 25.9 pg (28.0-33.3); Mean Corpuscular Volume 80.7 fL (83.0-100.0); Mean Platelet Volume 9.3 fL (9.4-12.4); Monocytes # 0.1 K/mcL (0.0-1.3); Monocytes % 1.3 %; Neutrophils # 6.1 K/mcL (1.6-8.9); Platelet Count 448 K/mcL (140-400); Red Blood Count 3.48 M/mcL (3.82-4.97); Red Cell Distribution Width 17.6 % (11.5-14.5); Segmented Neutrophils % 89.4 %
[2017-11-12 04:47] LABS: Albumin 2.7 g/dL (3.5-5.7); Albumin/Globulin Ratio 0.9 (1.1-2.2); Bilirubin,Total 0.4 mg/dL (0.3-1.0); Calcium 8.5 mg/dL (8.6-10.3); Globulin 3.1 g/dL (2.4-3.5); Potassium 5.5 mEq/L (3.5-5.1); Total Protein 5.8 g/dL (6.4-8.9)
[2017-11-12 04:50] LABS: Magnesium 2.3 mg/dL (1.6-2.6); Phosphorous 5.4 mg/dL (2.7-4.5)
[2017-11-12] MEDS ORDERED: *HR* Enoxaparin 30 MG/0.3 ML SYRINGE SQ SCH (06:00)
--- NOTE | 2017-11-12 07:45 | Urology Progress Note ---
Date of Encounter: 11/12/17 Time of Encounter: 07:43 - Assessment and Plan (1) Hydronephrosis due to obstruction of ureter Current Visit: Yes Status: Acute (2) CONNIE (acute kidney injury) Current Visit: Yes Status: Acute (3) Bladder cancer Current Visit: No Status: Chronic Qualifiers: Bladder location: overlapping sites Qualified Code(s): C67.8 - Malignant neoplasm of overlapping sites of bladder Progress Note Narrative: Patient seen. feeling better already. sp bilateral pcn tube placement last night. serum creatinine improving. Objective Initial Vital Signs Temp Pulse Resp BP Pulse Ox 98.1 F 69 18 126/71 99 11/10/17 13:35 11/10/17 13:35 11/10/17 13:35 11/10/17 13:35 11/10/17 13:35 - General physical appearance Present: well developed, well nourished - Abdomen Present: soft - Integumentary Present: no rash, no growths - Additional Exam back: spine normal. clear urine in both pcn tubes - Labs 11/12/17 04:06 11/12/17 04:06 Diabetes panel 11/12/17 Range/Units 04:06 Sodium 135 L (136-145) mEq/L Potassium 5.5 H (3.5-5.1) mEq/L Chloride 109 H (98-107) mEq/L Carbon Dioxide 16 L (23-29) mEq/L BUN 74 H (8-23) mg/dL Creatinine 5.86 H (0.60-1.20) mg/dL Glucose 125 H (70-105) mg/dL Calcium 8.5 L (8.6-10.3) mg/dL AST 14 (13-39) Units/L ALT 4 L (7-52) Units/L Alkaline Phosphatase 73 (34-104) Units/L Albumin 2.7 L (3.5-5.7) g/dL Calcium panel 11/12/17 11/12/17 Range/Units 04:06 04:06 Calcium 8.5 L (8.6-10.3) mg/dL Phosphorus 5.4 H (2.7-4.5) mg/dL Albumin 2.7 L (3.5-5.7) g/dL Pituitary panel 11/12/17 Range/Units 04:06 Sodium 135 L (136-145) mEq/L Potassium 5.5 H (3.5-5.1) mEq/L Chloride 109 H (98-107) mEq/L Carbon Dioxide 16 L (23-29) mEq/L BUN 74 H (8-23) mg/dL Creatinine 5.86 H (0.60-1.20) mg/dL Glucose 125 H (70-105) mg/dL Calcium 8.5 L (8.6-10.3) mg/dL Adrenal panel 11/12/17 Range/Units 04:06 Sodium 135 L (136-145) mEq/L Potassium 5.5 H (3.5-5.1) mEq/L Chloride 109 H (98-107) mEq/L Carbon Dioxide 16 L (23-29) mEq/L BUN 74 H (8-23) mg/dL Creatinine 5.86 H (0.60-1.20) mg/dL Glucose 125 H (70-105) mg/dL Calcium 8.5 L (8.6-10.3) mg/dL Total Bilirubin 0.4 (0.3-1.0) mg/dL AST 14 (13-39) Units/L ALT 4 L (7-52) Units/L Alkaline Phosphatase 73 (34-104) Units/L Albumin 2.7 L (3.5-5.7) g/dL Consult Discharge Plan - Plan Referrals: Dong Lewis DO [Primary Care Provider] -
--- NOTE | 2017-11-12 08:10 | Nephrology Progress Note ---
Date of Encounter: 11/12/17 Time of Encounter: 08:09 - Assessment and Plan (1) CONNIE (acute kidney injury) Current Visit: Yes Status: Acute Patient has acute kidney injury in the setting of bilateral ureteral obstruction from bladder cancer. Bilateral percutaneous nephrostomy tubes in place in her renal function is starting to improve. She will be monitored closely for a postobstructive diuresis. (2) Bladder cancer Current Visit: No Status: Chronic Qualifiers: Bladder location: overlapping sites Qualified Code(s): C67.8 - Malignant neoplasm of overlapping sites of bladder Subjective Interval history: Patient reports no complaints today. Imaging yesterday did confirm bilateral hydronephrosis. She did have bilateral percutaneous nephrostomy tubes placed. Urine output is 725 from yesterday. Serum creatinine is improved from 6.9 down to 5.8. Vital signs are stable. Objective - Vital Signs Vital signs: Vital Signs Temp Pulse Resp BP Pulse Ox 11/12/17 05:55 98.4 F 77 16 119/75 96 11/12/17 01:32 97.6 F 65 16 110/70 97 11/11/17 21:55 97.4 F L 60 17 104/65 98 11/11/17 19:00 68 16 123/66 11/11/17 18:17 66 16 125/69 11/11/17 18:16 97.9 F 76 16 126/72 94 11/11/17 17:33 81 14 142/67 89 11/11/17 17:26 73 15 143/71 91 11/11/17 17:19 96 15 157/76 89 Intake and Output 11/11/17 11/12/17 11/12/17 23:59 07:59 15:59 Output Total 725 / 725 275 / 275 Balance -725 / -725 -275 / -275 Output: Left Nephrostomy 225 / 225 Right Nephrostomy 500 / 500 Wound Drainage 275 / 275 Left 275 / 275 - General Appearance Exam: Patient is alert and oriented. She is in no acute distress. Lungs diminished breath sounds otherwise clear. Heart regular rate and rhythm. Abdomen is benign. There is mild lower extremity swelling. Bilateral percutaneous nephrostomy tubes are in place. - Lab 11/12/17 04:06 11/12/17 04:06 Most recent lab results Calcium 8.5 mg/dL (8.6-10.3) L 11/12/17 04:06 Phosphorus 5.4 mg/dL (2.7-4.5) H 11/12/17 04:06 Magnesium 2.3 mg/dL (1.6-2.6) 11/12/17 04:06 Consult Discharge Plan - Plan Referrals: Dong Lewis DO [Primary Care Provider] -
[2017-11-12] MEDS: Sodium Bicarbonate 75 MEQ in 0.45 % Sodium Chloride 1,000 ML IVC SCH ×2 (08:50→22:11)
[2017-11-12] MEDS: Cholecalciferol (D-3) 1,000 UNIT TABLET PO SCH (09:19)
[2017-11-12] MEDS: Metoprolol XL (24 HR) Succ 50 MG TAB.ER.24H PO SCH (09:19)
[2017-11-12] MEDS: cefTRIAXone 1,000 MG in Water for inj. (sterile) 20 ML 10 ML IVP SCH (09:20)
[2017-11-12] MEDS: Mirtazapine 15 MG TABLET PO SCH (09:21)
[2017-11-12] MEDS: amLODIPine 5 MG TABLET PO SCH (09:22)
--- NOTE | 2017-11-12 13:49 | Internal Med Progress Note ---
Date of Encounter: 11/12/17 Time of Encounter: 12:55 - Assessment and plan (1) CONNIE (acute kidney injury) Current Visit: Yes Status: Acute Assessment and plan: Likely post renal obstruction in the setting of bladder CA nephrology and urology input appreciated Renal US reported b/l moderate to severe hydronephrosis s/p bilateral nephrostomy tubes by IR on 11/11/17 continue IV fluids, will closely monitor for signs of volume overload Renal function improved from prevoius day will continue to closely monitor renal function (2) UTI (urinary tract infection) Current Visit: Yes Status: Acute Assessment and plan: continue IV Ceftriaxone f/u urine cultures Qualifiers: Urinary tract infection type: acute cystitis Hematuria presence: without hematuria Qualified Code(s): N30.00 - Acute cystitis without hematuria (3) Bladder cancer Current Visit: No Status: Chronic Assessment and plan: Oncology on board and evaluation appreciated Qualifiers: Bladder location: overlapping sites Qualified Code(s): C67.8 - Malignant neoplasm of overlapping sites of bladder (4) DVT prophylaxis Current Visit: No Status: Acute Assessment and plan: SCD (5) HLD (hyperlipidemia) Current Visit: No Status: Chronic Assessment and plan: continue home dose of lipitor Qualifiers: Hyperlipidemia type: pure hypercholesterolemia Qualified Code(s): E78.00 - Pure hypercholesterolemia, unspecified; E78.0 - Pure hypercholesterolemia (6) HTN (hypertension) Current Visit: No Status: Chronic Assessment and plan: BP within acceptable range continue home dose of Amlodipine and Metoprolol holding Valsartan given renal function will closely monitor BP Qualifiers: Hypertension type: essential hypertension Qualified Code(s): I10 - Essential (primary) hypertension (7) Underweight Current Visit: Yes Status: Acute Assessment and plan: likely secondary to underlying malignancy nutrition evaluation appreciated - Time Spent With Patient Total time spent is greater than 50% in coordination of care (as documented) at patient's floor/unit and/or counseling patient: - Subjective Interval history: Pt seen and examined with family present at bedside. Pt resting in chair and reports of feeling better compared to previous day. Tolerating PO intake better. s/p b/l percutaneous nephrostomy tubes placement(placed on 11/11/17 by IR) - Constitutional Vitals: Temp Pulse Resp BP Pulse Ox 98.3 F 70 16 113/64 97 11/12/17 11:27 11/12/17 11:27 11/12/17 11:27 11/12/17 11:27 11/12/17 11:27 General appearance: Present: cachectic, A&O X 3 (frail appearing elderly female) , no acute distress, underweight - Head Head exam: Present: atraumatic, normocephalic - Eye Eye exam: Present: conjuntiva pink, sclera anicteric - Respiratory Respiratory exam: Present: CTAB. Absent: respiratory distress, wheezes - Cardiovascular Cardiovascular exam: Present: RRR, +S1, +S2. Absent: diastolic murmur, gallop, rubs, systolic murmur - GI/Abdominal GI/Abdominal exam: Present: normal bowel sounds, soft, no peritoneal signs. Absent: distended, tenderness - Extremities Exam Extremities exam: Present: pedal edema, warm, radial pulses palpable and symmetrical. Absent: calf tenderness - Neurological Exam Neurological exam: Present: oriented X3 Internal Medicine: Result - Labs CBC & Chem 7: 11/12/17 04:06 11/12/17 04:06 Labs: Short CBC 11/12/17 Range/Units 04:06 WBC 6.8 (4.3-11.1) K/mcL Hgb 9.0 L (11.5-15.4) g/dL Hct 28.1 L (35.3-44.9) % Plt Count 448 H (140-400) K/mcL Neutrophils # 6.1 (1.6-8.9) K/mcL BMP 11/12/17 04:06 Sodium 135 L Potassium 5.5 H Chloride 109 H Carbon Dioxide 16 L BUN 74 H Creatinine 5.86 H Glucose 125 H Calcium 8.5 L Liver Function 11/12/17 Range/Units 04:06 Total Bilirubin 0.4 (0.3-1.0) mg/dL AST 14 (13-39) Units/L ALT 4 L (7-52) Units/L Alkaline Phosphatase 73 (34-104) Units/L Albumin 2.7 L (3.5-5.7) g/dL - ABG Interpretation ABG results: PT/INR, D-dimer PT 11.5 Seconds (9.4-12.1) 11/11/17 12:29 - Impressions Impressions Guidance Needle Placement Ultrasound 11/11/17 00:00 IMPRESSION: Bilateral percutaneous nephrostomy catheter insertion as above. D/ / 11/12/2017 09:13:00 Eron Johnston MD / eliceo Interpreting Provider: Eron Johnston MD Nephrostomy 11/11/17 00:00 IMPRESSION: Bilateral percutaneous nephrostomy catheter insertion as above. D/ / 11/12/2017 09:13:00 Eron Johnston MD / eliceo Interpreting Provider: Eron Johnston MD Nephrostomy 11/11/17 00:00 IMPRESSION: Bilateral percutaneous nephrostomy catheter insertion as above. D/ / 11/12/2017 09:13:00 Eron Johnston MD / eliceo Interpreting Provider: Eron Johnston MD Consult Discharge Plan - Plan Referrals: Dong Lewis DO [Primary Care Provider] -
--- NOTE | 2017-11-12 17:42 | Oncology Inp Progress Note ---
<Louise Myles L - Last Filed: 11/12/17 18:18> Date of Encounter: 11/12/17 Time of Encounter: 16:30 (1) Bladder cancer Current Visit: No Status: Chronic Assessment and plan: Locally advanced high-grade invasive urothelial carcinoma. Further staging pending PET/CT which will need to be rescheduled as outpatient. Patients family wish to proceed with palliative radiotherapy, likely followed with PD L1 inhibition treatment. Patient and patients family understand that hospice is another viable option which is available to patient at any time she wises. Further workup and treatment finalization to be completed on outpatient basis per Dr. Capone, treating oncologist. Qualifiers: Bladder location: overlapping sites Qualified Code(s): C67.8 - Malignant neoplasm of overlapping sites of bladder (2) CONNIE (acute kidney injury) Current Visit: Yes Status: Acute Assessment and plan: Renal obstruction secondary to tumor involvement. S/P bilateral nephrostomy tubes by IR on 11/11/17 Renal function slowly improving. She now has signs of fluid overload clinically and radiographically, I have decreased her IVF to 50 ml/hr for time being, would appreciate further recommendations per primary team/nephrology if ok with decrease or if fluids may be discontinued Please refer to Dr. Capone's attestation below for additional details. Oncology: Subj Interval history: Ms. Garcia is resting comfortably in bed, her daughter is at bedside. She reports tolerating her nephrostomy tube placement well and denies pain at this time. She does report some generalized edema, will decrease IVF. She is otherwise doing well. - Constitutional Vitals: Vital Signs Temp Pulse Resp BP Pulse Ox 11/12/17 16:13 98.1 F 76 16 119/65 97 11/12/17 11:27 98.3 F 70 16 113/64 97 11/12/17 07:49 98.4 F 71 16 120/68 95 11/12/17 05:55 98.4 F 77 16 119/75 96 11/12/17 01:32 97.6 F 65 16 110/70 97 11/11/17 21:55 97.4 F L 60 17 104/65 98 11/11/17 19:00 68 16 123/66 11/11/17 18:17 66 16 125/69 11/11/17 18:16 97.9 F 76 16 126/72 94 Intake and Output 11/12/17 11/12/17 11/12/17 07:59 15:59 23:59 Intake Total 1075 / 1075 75 / 75 Output Total 575 / 575 250 / 250 150 / 150 Balance 500 / 500 -175 / -175 -150 / -150 Intake: IV Fluids 1075 / 1075 Sodium Bicarbonate 75 MEQ In 0. 1075 / 1075 45% Sodium Chloride 1000 Ml 1000 Ml 1,000 ML @ 100 mls/hr IVC .[id number] [facility] Rx#:[id number] Oral 75 / 75 Output: Urine 300 / 300 250 / 250 150 / 150 Wound Drainage 275 / 275 Left 275 / 275 Other: Meal Breakfast Percent of Meal Consumed 100% # Bowel Movements 0 # Bowel Movement Diapers 0 General appearance: cooperative, no acute distress, thin, no febrile - Head Head exam: Present: atraumatic - ENT ENT exam: Present: mucous membranes moist - Respiratory Respiratory exam: Present: CTAB. Absent: respiratory distress - Cardiovascular Cardiovascular exam: Present: RRR, +S1, +S2 - GI/Abdominal GI/Abdominal exam: Present: normal bowel sounds, soft. Absent: tenderness - Extremities Exam Extremities exam: Present: pedal edema. Absent: calf tenderness - Neurological Exam Neurological exam: Present: alert, oriented X3, no focal deficits, strengths equal and symetr throughout - Psychiatric Psychiatric exam: Present: normal affect, normal mood - Skin Skin exam: Present: dry, intact, normal color, warm Oncology: Obj Data - Labs CBC & Chem 7: 11/12/17 04:06 11/12/17 04:06 - Impressions Impressions Guidance Needle Placement Ultrasound 11/11/17 00:00 IMPRESSION: Bilateral percutaneous nephrostomy catheter insertion as above. D/ 11/12/2017 09:13:00 Eron Johnston MD / eliceo Interpreting Provider: Eron Johnston MD Nephrostomy 11/11/17 00:00 IMPRESSION: Bilateral percutaneous nephrostomy catheter insertion as above. D/ 11/12/2017 09:13:00 Eron Johnston MD / eliceo Interpreting Provider: Eron Johnston MD Nephrostomy 11/11/17 00:00 IMPRESSION: Bilateral percutaneous nephrostomy catheter insertion as above. D/ / 11/12/2017 09:13:00 Eron Johnston MD / eliceo Interpreting Provider: Eron Johnston MD - ABG Interpretation ABG results: PT/INR, D-dimer PT 11.5 Seconds (9.4-12.1) 11/11/17 12:29 Consult Discharge Plan - Plan Referrals: Dong Lewis DO [Primary Care Provider] - <Marcos Capone - Last Filed: 11/12/17 21:40> Date of Encounter: 11/12/17 - Constitutional Vitals: Vital Signs Temp Pulse Resp BP Pulse Ox 11/12/17 20:00 97.6 F 69 18 124/73 97 11/12/17 16:13 98.1 F 76 16 119/65 97 11/12/17 11:27 98.3 F 70 16 113/64 97 11/12/17 07:49 98.4 F 71 16 120/68 95 11/12/17 05:55 98.4 F 77 16 119/75 96 11/12/17 01:32 97.6 F 65 16 110/70 97 11/11/17 21:55 97.4 F L 60 17 104/65 98 Intake and Output 11/12/17 11/12/17 11/13/17 08:59 16:59 00:59 Intake Total 1075 / 1075 75 / 75 Output Total 575 / 575 400 / 400 365 / 365 Balance 500 / 500 -325 / -325 -365 / -365 Intake: IV Fluids 1075 / 1075 Sodium Bicarbonate 75 MEQ In 0. 1075 / 1075 45% Sodium Chloride 1000 Ml 1000 Ml 1,000 ML @ 100 mls/hr IVC .[id number] [facility] Rx#:[id number] Oral 75 / 75 Output: Urine 300 / 300 400 / 400 Wound Drainage 275 / 275 365 / 365 Left 275 / 275 190 / 190 Right 175 / 175 Other: Meal Breakfast Percent of Meal Consumed 100% # Bowel Movements 0 # Bowel Movement Diapers 0 Oncology: Obj Data - Labs CBC & Chem 7: 11/12/17 04:06 11/12/17 04:06 Labs: Laboratory Results - last 24 hr 11/12/17 11/12/17 11/12/17 04:06 04:06 04:06 WBC 6.8 RBC 3.48 L Hgb 9.0 L Hct 28.1 L MCV 80.7 L MCH 25.9 L MCHC 32.0 RDW 17.6 H Plt Count 448 H MPV 9.3 L Immature Gran % 0.9 Seg Neutrophils % 89.4 Lymphocytes % 8.3 Monocytes % 1.3 Eosinophils % 0.0 Basophils % 0.1 Neutrophils # 6.1 Lymphocytes # 0.6 Monocytes # 0.1 Eosinophils # 0.0 Basophils # 0.0 Sodium 135 L Potassium 5.5 H Chloride 109 H Carbon Dioxide 16 L BUN 74 H Creatinine 5.86 H Est GFR ( Amer) 8 L Est GFR (Non-Af Amer) 7 L BUN/Creatinine Ratio 13 Glucose 125 H Calculated Osmolality 303 H Calcium 8.5 L Phosphorus 5.4 H Magnesium 2.3 Total Bilirubin 0.4 AST 14 ALT 4 L Alkaline Phosphatase 73 Serum Total Protein 5.8 L Albumin 2.7 L Globulin 3.1 Albumin/Globulin Ratio 0.9 L - Impressions Impressions Guidance Needle Placement Ultrasound 11/11/17 00:00 IMPRESSION: Bilateral percutaneous nephrostomy catheter insertion as above. D/ /12/2017 09:13:00 Eron Johnston MD / eliceo Interpreting Provider: Eron Johnston MD Nephrostomy 11/11/17 00:00 IMPRESSION: Bilateral percutaneous nephrostomy catheter insertion as above. D/ /12/2017 09:13:00 Eron Johnston MD / eliceo Interpreting Provider: Eron Johnston MD Nephrostomy 11/11/17 00:00 IMPRESSION: Bilateral percutaneous nephrostomy catheter insertion as above. D/ /12/2017 09:13:00 Eron Johnston MD / eliceo Interpreting Provider: Eron Johnston MD - ABG Interpretation ABG results: PT/INR, D-dimer PT 11.5 Seconds (9.4-12.1) 11/11/17 12:29 - Attending Attestation I examined this patient and my medical decision-making was reviewed with the Advanced Practice Nurse. I agree with the documented findings, disposition and treatment plan as described except to the extent set forth below. She is s/p bilateral nephrostomy tube placement with improvement in her CONNIE. She is without pain which is encouraging. CT imaging reveals ascites and pleural effusions. Exam with persistent effusion on the right. Would recommend decreasing IVF. We have arranged for radiation consultation, and will consider PD-L1 therapy after. We will sign off. Please call with questions.
[2017-11-13 05:38] LABS: Basophils % 0.4 %; Eosinophils # 0.2 K/mcL (0.0-0.6); Eosinophils % 2.1 %; Hematocrit 24.5 % (35.3-44.9); Hemoglobin 8.1 g/dL (11.5-15.4); Immature Granulocytes % 0.4 % (0-4); Lymphocytes # 1.6 K/mcL (0.6-4.6); Lymphocytes % 19.6 %; Mean Corpuscular HGB Conc 33.1 g/dL (31.6-35.5); Mean Corpuscular Hemoglobin 26.3 pg (28.0-33.3); Mean Corpuscular Volume 79.5 fL (83.0-100.0); Mean Platelet Volume 9.2 fL (9.4-12.4); Monocytes # 0.7 K/mcL (0.0-1.3); Neutrophils # 5.6 K/mcL (1.6-8.9); Platelet Count 359 K/mcL (140-400); Red Blood Count 3.08 M/mcL (3.82-4.97); Red Cell Distribution Width 17.8 % (11.5-14.5); Segmented Neutrophils % 68.5 %
[2017-11-13 05:57] LABS: Magnesium 1.8 mg/dL (1.6-2.6); Phosphorous 3.1 mg/dL (2.7-4.5)
[2017-11-13 06:00] LABS: Albumin 2.5 g/dL (3.5-5.7); Bilirubin,Total 0.3 mg/dL (0.3-1.0); Calcium 8.1 mg/dL (8.6-10.3); Globulin 2.5 g/dL (2.4-3.5); Potassium 3.5 mEq/L (3.5-5.1)
--- NOTE | 2017-11-13 07:41 | Urology Progress Note ---
Date of Encounter: 11/13/17 Time of Encounter: 07:39 - Assessment and Plan (1) Hydronephrosis due to obstruction of ureter Current Visit: Yes Status: Acute Assessment and plan: Appears resolving as patient serum creatinine is slowly improving. Continue with bilateral nephrostomy tubes (2) CONNIE (acute kidney injury) Current Visit: Yes Status: Acute Assessment and plan: Relatively rapidly improving serum creatinine is 3.14 today (3) Bladder cancer Current Visit: No Status: Chronic Assessment and plan: Per oncology Qualifiers: Bladder location: overlapping sites Qualified Code(s): C67.8 - Malignant neoplasm of overlapping sites of bladder Progress Note Narrative: Patient seen this morning. Patient feeling better. Patient's serum creatinine down to 3.14 Objective Initial Vital Signs Temp Pulse Resp BP Pulse Ox 98.1 F 69 18 126/71 99 11/10/17 13:35 11/10/17 13:35 11/10/17 13:35 11/10/17 13:35 11/10/17 13:35 - General physical appearance Present: well developed, well nourished - Respiratory Present: normal expansion, normal respiratory effort - Abdomen Present: soft - Additional Exam Back: Spine straight, bilateral nephrostomy tubes draining clear urine - Labs 11/13/17 05:22 11/13/17 05:22 Diabetes panel 11/13/17 Range/Units 05:22 Sodium 137 (136-145) mEq/L Potassium 3.5 (3.5-5.1) mEq/L Chloride 107 (98-107) mEq/L Carbon Dioxide 22 L (23-29) mEq/L BUN 50 H (8-23) mg/dL Creatinine 3.14 H (0.60-1.20) mg/dL Glucose 86 (70-105) mg/dL Calcium 8.1 L (8.6-10.3) mg/dL AST 12 L (13-39) Units/L ALT 3 L (7-52) Units/L Alkaline Phosphatase 61 (34-104) Units/L Albumin 2.5 L (3.5-5.7) g/dL Calcium panel 11/13/17 11/13/17 Range/Units 05:22 05:22 Calcium 8.1 L (8.6-10.3) mg/dL Phosphorus 3.1 (2.7-4.5) mg/dL Albumin 2.5 L (3.5-5.7) g/dL Pituitary panel 11/13/17 Range/Units 05:22 Sodium 137 (136-145) mEq/L Potassium 3.5 (3.5-5.1) mEq/L Chloride 107 (98-107) mEq/L Carbon Dioxide 22 L (23-29) mEq/L BUN 50 H (8-23) mg/dL Creatinine 3.14 H (0.60-1.20) mg/dL Glucose 86 (70-105) mg/dL Calcium 8.1 L (8.6-10.3) mg/dL Adrenal panel 11/13/17 Range/Units 05:22 Sodium 137 (136-145) mEq/L Potassium 3.5 (3.5-5.1) mEq/L Chloride 107 (98-107) mEq/L Carbon Dioxide 22 L (23-29) mEq/L BUN 50 H (8-23) mg/dL Creatinine 3.14 H (0.60-1.20) mg/dL Glucose 86 (70-105) mg/dL Calcium 8.1 L (8.6-10.3) mg/dL Total Bilirubin 0.3 (0.3-1.0) mg/dL AST 12 L (13-39) Units/L ALT 3 L (7-52) Units/L Alkaline Phosphatase 61 (34-104) Units/L Albumin 2.5 L (3.5-5.7) g/dL Consult Discharge Plan - Plan Referrals: Dong Lewis DO [Primary Care Provider] -
[2017-11-13] MEDS: Metoprolol XL (24 HR) Succ 50 MG TAB.ER.24H PO SCH (08:46)
[2017-11-13] MEDS: Mirtazapine 15 MG TABLET PO SCH (08:47)
[2017-11-13] MEDS: amLODIPine 5 MG TABLET PO SCH (08:47)
[2017-11-13] MEDS: cefTRIAXone 1,000 MG in Water for inj. (sterile) 20 ML 10 ML IVP SCH (08:48)
[2017-11-13] MEDS: Sodium Bicarbonate 75 MEQ in 0.45 % Sodium Chloride 1,000 ML IVC SCH ×2 (08:57→09:09)
[2017-11-13] MEDS: Cholecalciferol (D-3) 1,000 UNIT TABLET PO SCH (09:05)
--- NOTE | 2017-11-13 09:21 | Nephrology Progress Note ---
Date of Encounter: 11/13/17 Time of Encounter: 09:20 - Assessment and Plan (1) CONNIE (acute kidney injury) Current Visit: Yes Status: Acute Patient has acute kidney injury in the setting of bilateral ureteral obstruction from bladder cancer. The patient's acute kidney injury continues to improve following the placement of bilateral percutaneous nephrostomy tubes. (2) Bladder cancer Current Visit: No Status: Chronic Qualifiers: Bladder location: overlapping sites Qualified Code(s): C67.8 - Malignant neoplasm of overlapping sites of bladder Subjective Interval history: The patient is sitting up in a chair. She reports she is feeling well. Urine output is satisfactory. Serum creatinine is improved down to 3.14. Nephrostomy tubes appear to be functioning properly. Objective - Vital Signs Vital signs: Vital Signs Temp Pulse Resp BP Pulse Ox 11/13/17 09:12 94 11/13/17 08:00 98.3 F 74 16 122/69 94 11/13/17 04:27 98.4 F 68 18 126/73 92 11/13/17 00:18 98.2 F 69 16 113/67 93 11/12/17 20:00 97.6 F 69 18 124/73 97 11/12/17 16:13 98.1 F 76 16 119/65 97 11/12/17 11:27 98.3 F 70 16 113/64 97 Intake and Output 11/12/17 11/13/17 11/13/17 23:59 07:59 15:59 Intake Total 1010 / 1010 Output Total 515 / 515 1450 / 1450 550 / 550 Balance -515 / -515 -1450 / -1450 460 / 460 Intake: IV Fluids 1010 / 1010 Sodium Bicarbonate 75 MEQ In 0. 1000 / 1000 45% Sodium Chloride 1000 Ml 1000 Ml 1,000 ML @ 100 mls/hr IVC .[id number] [facility] Rx#:[id number] Rocephin 1,000 MG In Water for 10 / 10 inj. (sterile) 10 ML @ 300 mls/ hr IVP DAILY [facility] Rx#:[id number] Output: Urine 150 / 150 Wound Drainage 365 / 365 1450 / 1450 550 / 550 Left 190 / 190 600 / 600 250 / 250 Right 175 / 175 850 / 850 300 / 300 - General Appearance Exam: Patient is alert and oriented. She is in no acute distress. Lungs benchpress sounds otherwise clear. Heart regular rate and rhythm. Abdomen is benign. There is minimal lower extremity swelling. Bilateral percutaneous nephrostomy tubes are in place. - Lab 11/13/17 05:22 11/13/17 05:22 Most recent lab results Calcium 8.1 mg/dL (8.6-10.3) L 11/13/17 05:22 Phosphorus 3.1 mg/dL (2.7-4.5) 11/13/17 05:22 Magnesium 1.8 mg/dL (1.6-2.6) 11/13/17 05:22 Consult Discharge Plan - Plan Referrals: Dong Lewis DO [Primary Care Provider] -
--- NOTE | 2017-11-13 13:40 | Internal Med Progress Note ---
Date of Encounter: 11/13/17 Time of Encounter: 13:39 - Assessment and plan (1) CONNIE (acute kidney injury) Current Visit: Yes Status: Acute Assessment and plan: Post obstructive etiology due to bladder cancer. Improving s/p nephrostomies. c/ w IV fluids. Nephrology managing. Possible d/c soon when cleared by all services. (2) Bladder cancer Current Visit: No Status: Chronic Assessment and plan: Oncology on board and evaluation appreciated. f/u with them Qualifiers: Bladder location: overlapping sites Qualified Code(s): C67.8 - Malignant neoplasm of overlapping sites of bladder (3) UTI (urinary tract infection) Current Visit: Yes Status: Acute Assessment and plan: continue IV Ceftriaxone f/u urine cultures Qualifiers: Urinary tract infection type: acute cystitis Hematuria presence: without hematuria Qualified Code(s): N30.00 - Acute cystitis without hematuria (4) Anemia Current Visit: Yes Status: Acute Assessment and plan: Microcytic anemia. Malnourished. Check iron studies. Qualifiers: Anemia type: unspecified type Qualified Code(s): D64.9 - Anemia, unspecified (5) HTN (hypertension) Current Visit: No Status: Chronic Assessment and plan: BP is stable. c/w home meds Qualifiers: Hypertension type: essential hypertension Qualified Code(s): I10 - Essential (primary) hypertension (6) HLD (hyperlipidemia) Current Visit: No Status: Chronic Assessment and plan: continue home dose of lipitor Qualifiers: Hyperlipidemia type: pure hypercholesterolemia Qualified Code(s): E78.00 - Pure hypercholesterolemia, unspecified; E78.0 - Pure hypercholesterolemia (7) Severe protein-calorie malnutrition Current Visit: Yes Status: Acute Assessment and plan: Dietary following. (8) DVT prophylaxis Current Visit: No Status: Acute Assessment and plan: SCD - Time Spent With Patient Total time spent is greater than 50% in coordination of care (as documented) at patient's floor/unit and/or counseling patient: - Subjective Interval history: Patient was seen and examined. No acute events. Feels well. Admitted with acute kidney failure due to urinary obstruction. s/p b/l nephrostomies. - Constitutional Vitals: Temp Pulse Resp BP Pulse Ox 97.7 F 70 18 107/73 94 11/13/17 11:53 11/13/17 11:53 11/13/17 11:53 11/13/17 11:53 11/13/17 11:53 General appearance: Present: cachectic, A&O X 3 (frail appearing elderly female) , no acute distress, underweight Exam: GEN: NAD CVS: RRR. S1, S2, No m/r/g RESP: CTAB ABD: Soft, NT, ND, +BS EXT: No edema. 2+ DP. No rashes NEURO: Nonfocal Internal Medicine: Result - Labs CBC & Chem 7: 11/13/17 05:22 11/13/17 05:22 Labs: Short CBC 11/13/17 Range/Units 05:22 WBC 8.1 (4.3-11.1) K/mcL Hgb 8.1 L (11.5-15.4) g/dL Hct 24.5 L (35.3-44.9) % Plt Count 359 (140-400) K/mcL Neutrophils # 5.6 (1.6-8.9) K/mcL BMP 11/13/17 05:22 Sodium 137 Potassium 3.5 Chloride 107 Carbon Dioxide 22 L BUN 50 H Creatinine 3.14 H Glucose 86 Calcium 8.1 L Liver Function 11/13/17 Range/Units 05:22 Total Bilirubin 0.3 (0.3-1.0) mg/dL AST 12 L (13-39) Units/L ALT 3 L (7-52) Units/L Alkaline Phosphatase 61 (34-104) Units/L Albumin 2.5 L (3.5-5.7) g/dL - ABG Interpretation ABG results: PT/INR, D-dimer PT 11.5 Seconds (9.4-12.1) 11/11/17 12:29 - Impressions Impressions Guidance Needle Placement Ultrasound 11/11/17 00:00 IMPRESSION: Bilateral percutaneous nephrostomy catheter insertion as above. D/ / 11/12/2017 09:13:00 Eron Johnston MD / eliceo Interpreting Provider: Eron Johnston MD Nephrostomy 11/11/17 00:00 IMPRESSION: Bilateral percutaneous nephrostomy catheter insertion as above. D/ / 11/12/2017 09:13:00 Eron Johnston MD / eliceo Interpreting Provider: Eron Johnston MD Nephrostomy 11/11/17 00:00 IMPRESSION: Bilateral percutaneous nephrostomy catheter insertion as above. D/ / 11/12/2017 09:13:00 Eron Johnston MD / eliceo Interpreting Provider: Eron Johnston MD Consult Discharge Plan - Plan Referrals: Dong Lewis DO [Primary Care Provider] -
[2017-11-13 18:23] LABS: % Iron Saturation 20 % (15-50); Ferritin 179 ng/ml (10-120); Iron 54 mcg/dL (50-170); Transferrin 192 mg/dL (203-362)
[2017-11-13 18:45] LABS: Folate 6.6 ng/mL (3.0-16.0)
[2017-11-14] MEDS: Sodium Bicarbonate 75 MEQ in 0.45 % Sodium Chloride 1,000 ML IVC SCH (05:04)
[2017-11-14 06:04] LABS: Basophils % 0.6 %; Eosinophils # 0.3 K/mcL (0.0-0.6); Eosinophils % 4.7 %; Hematocrit 24.9 % (35.3-44.9); Hemoglobin 8.1 g/dL (11.5-15.4); Immature Granulocytes % 0.4 % (0-4); Lymphocytes # 1.3 K/mcL (0.6-4.6); Lymphocytes % 18.7 %; Mean Corpuscular HGB Conc 32.5 g/dL (31.6-35.5); Mean Corpuscular Volume 79.8 fL (83.0-100.0); Mean Platelet Volume 8.8 fL (9.4-12.4); Monocytes # 0.7 K/mcL (0.0-1.3); Monocytes % 9.9 %; Neutrophils # 4.6 K/mcL (1.6-8.9); Platelet Count 291 K/mcL (140-400); Red Blood Count 3.12 M/mcL (3.82-4.97); Red Cell Distribution Width 17.7 % (11.5-14.5); Segmented Neutrophils % 65.7 %
[2017-11-14 06:28] LABS: Calcium 7.8 mg/dL (8.6-10.3); Magnesium 1.3 mg/dL (1.6-2.6); Potassium 3.1 mEq/L (3.5-5.1)
--- NOTE | 2017-11-14 08:16 | Event Note ---
Date of Encounter: 11/14/17 Time of Encounter: 08:15 The patient's renal function continues to improve following the placement of bilateral percutaneous nephrostomy tubes. Nephrology will sign off. Please call again if needed.
--- NOTE | 2017-11-14 09:17 | Urology Progress Note ---
Date of Encounter: 11/14/17 Time of Encounter: 09:16 - Assessment and Plan (1) Hydronephrosis due to obstruction of ureter Current Visit: Yes Status: Acute Assessment and plan: Continue bilateral nephrostomy tubes. Patient will need follow-up with Dr. Zapata in 1-2 months. We will sign off call with any questions. (2) CONNIE (acute kidney injury) Current Visit: Yes Status: Acute Assessment and plan: Patient serum creatinine almost back to baseline (3) Bladder cancer Current Visit: No Status: Chronic Qualifiers: Bladder location: overlapping sites Qualified Code(s): C67.8 - Malignant neoplasm of overlapping sites of bladder Progress Note Narrative: Patient seen this morning. She is feeling much better. Serum creatinine down to 1.68. Objective Initial Vital Signs Temp Pulse Resp BP Pulse Ox 98.1 F 69 18 126/71 99 11/10/17 13:35 11/10/17 13:35 11/10/17 13:35 11/10/17 13:35 11/10/17 13:35 - General physical appearance Present: well developed, well nourished - Abdomen Present: soft. Absent: tender - Genitourinary Present: other (Bilateral nephrostomy tubes draining clear urine) - Labs 11/14/17 05:44 11/14/17 05:44 Diabetes panel 11/14/17 Range/Units 05:44 Sodium 136 (136-145) mEq/L Potassium 3.1 L (3.5-5.1) mEq/L Chloride 105 (98-107) mEq/L Carbon Dioxide 26 (23-29) mEq/L BUN 28 H (8-23) mg/dL Creatinine 1.68 H (0.60-1.20) mg/dL Glucose 87 (70-105) mg/dL Calcium 7.8 L (8.6-10.3) mg/dL Calcium panel 11/14/17 Range/Units 05:44 Calcium 7.8 L (8.6-10.3) mg/dL Pituitary panel 11/14/17 Range/Units 05:44 Sodium 136 (136-145) mEq/L Potassium 3.1 L (3.5-5.1) mEq/L Chloride 105 (98-107) mEq/L Carbon Dioxide 26 (23-29) mEq/L BUN 28 H (8-23) mg/dL Creatinine 1.68 H (0.60-1.20) mg/dL Glucose 87 (70-105) mg/dL Calcium 7.8 L (8.6-10.3) mg/dL Adrenal panel 11/14/17 Range/Units 05:44 Sodium 136 (136-145) mEq/L Potassium 3.1 L (3.5-5.1) mEq/L Chloride 105 (98-107) mEq/L Carbon Dioxide 26 (23-29) mEq/L BUN 28 H (8-23) mg/dL Creatinine 1.68 H (0.60-1.20) mg/dL Glucose 87 (70-105) mg/dL Calcium 7.8 L (8.6-10.3) mg/dL Consult Discharge Plan - Plan Referrals: Dong Lewis DO [Primary Care Provider] -
[2017-11-14] MEDS: Mirtazapine 15 MG TABLET PO SCH (09:21)
[2017-11-14] MEDS: Cholecalciferol (D-3) 1,000 UNIT TABLET PO SCH (09:21)
[2017-11-14] MEDS: Metoprolol XL (24 HR) Succ 50 MG TAB.ER.24H PO SCH (09:22)
[2017-11-14] MEDS: cefTRIAXone 1,000 MG in Water for inj. (sterile) 20 ML 10 ML IVP SCH (09:22)
[2017-11-14] MEDS: amLODIPine 5 MG TABLET PO SCH (09:22)
--- NOTE | 2017-11-14 11:13 | Discharge Summary ---
Date of Encounter: 11/14/17 Time of Encounter: 11:13 - Discharge Diagnosis (1) CONNIE (acute kidney injury) Priority: Primary Status: Acute (2) Bladder cancer Priority: Secondary Status: Chronic Qualifiers: Bladder location: overlapping sites Qualified Code(s): C67.8 - Malignant neoplasm of overlapping sites of bladder (3) UTI (urinary tract infection) Priority: Primary Status: Acute Qualifiers: Urinary tract infection type: acute cystitis Hematuria presence: without hematuria Qualified Code(s): N30.00 - Acute cystitis without hematuria (4) Anemia Priority: Secondary Status: Acute Qualifiers: Anemia type: unspecified type Qualified Code(s): D64.9 - Anemia, unspecified (5) HTN (hypertension) Priority: Secondary Status: Chronic Qualifiers: Hypertension type: essential hypertension Qualified Code(s): I10 - Essential (primary) hypertension (6) HLD (hyperlipidemia) Priority: Secondary Status: Chronic Qualifiers: Hyperlipidemia type: pure hypercholesterolemia Qualified Code(s): E78.00 - Pure hypercholesterolemia, unspecified; E78.0 - Pure hypercholesterolemia (7) Severe protein-calorie malnutrition Priority: Secondary Status: Acute Hospital course: Ms. Garcia is a 87 year old female with history of recent diagnosis with bladder cancer, CAD had a CABG in the past, hypertension, CVA, aortic valve replacement and hyperlipidemia. Patient was seen by her oncologist office and had some lab drawn which come back with creatinine 6.9 with previous creatinine of 1.5 about a month ago. Patient was sent to the ED where a CT abdomen and pelvis was done showing abnormal appearance of the urinary bladder with asymmetric marked wall thickening involving the left half which is most probably the course of bilateral hydronephrosis and hydroureter which is new since her previous exam. Her UA showed signs of a UTI. She was started on IV antibiotics initially. Cultures remained negative and she was discharged on Levaquin to finish her course. The patient was seen by urology and is suspected that this was all cause because of her recent bladder cancer causing an outlet obstruction. Bilateral nephrostomy tubes were placed her kidney function improved is significantly. She was also being followed by nephrology and they signed off after kidney function improved. The patient was discharged on 11/14 she will follow-up with her oncologist as well who also followed along with plans to discuss chemotherapy/radiation in the outpatient setting. - Time Spent with Patient Total time spent providing and/or coordinating discharge services: Greater than 30 minutes - Discharge Medications Prescriptions: Cephalexin [Keflex] 500 mg PO BID #10 capsule Home Medications: Atorvastatin [Lipitor] 40 mg PO HS 01/29/16 [History] Metoprolol XL (24 HR) Succ [Toprol Xl] 50 mg PO QAM 01/29/16 [History] Amlodipine Besylate 10 mg PO QAM 10/07/17 [History] Cholecalciferol (Vitamin D3) [Vitamin D3] 10,000 unit PO FR 10/07/17 [History] Valsartan 320 mg PO QAM 10/07/17 [History] Mirtazapine 7.5 mg PO DAILY #30 tablet 11/09/17 [Rx] Cephalexin [Keflex] 500 mg PO BID #10 capsule 11/14/17 [Rx] Allergies/Adverse Reactions: 3 Allergy/AdvReac Type Severity Reaction Status Date / Time nifedipine [From Procardia] Allergy Hives Verified 10/07/17 19:29 IVP dye Allergy Vomiting Uncoded 10/07/17 19:29 Date of admission: 11/10/17 16:02 Primary care physician: Dong Lewis Consults: 11/11/17 09:48 Consult to Oncology Hematology [CONS] Routine Consulting Provider: Louise Myles Reason for Consult: bladder ca Call Completed: Yes 11/11/17 11:31 Consult to Interventional Radiology [CONS] Routine Consulting Provider: Radiology Interventional Cols Reason for Consult: bilateral nephrostomy tubes Call Completed: Yes 11/11/17 12:10 Consult Oncology Dietitian/Nutrtition [CONS] Routine - Constitutional Vitals: Temp Pulse Resp BP Pulse Ox 98.8 F 103 17 115/70 94 11/14/17 08:14 11/14/17 08:14 11/14/17 08:14 11/14/17 08:14 11/14/17 08:14 General appearance: Present: cachectic, A&O X 3 (frail appearing elderly female) , no acute distress, underweight Exam: GEN: NAD, cachectic CVS: RRR. S1, S2, No m/r/g RESP: CTAB ABD: Soft, NT, ND, +BS. Nephrostomy tubes noted bilaterally with normal colored urine. EXT: No edema. 2+ DP. No rashes NEURO: Nonfocal - Patient Status Disposition: Home, Self-Care Condition: Fair Overall status at discharge: patient is progressing back to baseline - Discharge Instructions Instructions: Acute Kidney Injury (DC), Urinary Tract Infection in Women (DC), Hydronephrosis (DC) Follow Up With: Dong Lewis DO [Primary Care Provider] - (Please call on Thursday and make a hospital follow up 7-10 out. Thank you!!) Dong Zapata MD [Partnered Physician] - (Please call and schedule a follow up appointment for 2 weeks out. Thank you!) - Diet and Activity Activity: increase activity as tolerated Diet: low salt diet
[2017-11-14 11:36] VITALS: BP 120/66
== END 2017-11-14 13:23 | disposition home or self-care (01) | DRG 686 ==
LOC: EMEROO 12:51 → 2ANU 16:02
PROVIDERS: ADMIT Internal Medicine Cardiovascular Disease; ATTEND Internal Medicine